=== PATIENT | male | born 1955 | race Caucasian/White ===

== ENCOUNTER 2021-03-12 04:26 | Inpatient (IN) | payer OTHER ==
[2021-03-12] VITALS (24 sets, daily range): BP systolic 98–150; BP diastolic 33–87
[~2021-03-12] VITALS: Ht 185.4 cm; Wt 113.4 kg
--- NOTE | 2021-03-12 04:40 | NUR ---
PT BIBRA 89 [facility] C/O SOB SINCE COUPLE OF DAYS. 82% ON RA. ARRIVED WITH NRB 10LPM; O2 AT 94%. OPEN WOUNDS NOTED TO LLE
[2021-03-12] MEDS ORDERED: methylPREDNISolone SOD SUCC 125 MG/2ML VIAL ONE (04:49)
[2021-03-12] MEDS ORDERED: methylPREDNISolone SOD SUCC 125 MG/2ML VIAL IV ONE (05:00)
[2021-03-12] MEDS ORDERED: IV NS 0.9% 1,000 ML BAG IV ONE (05:00)
[2021-03-12] MEDS ORDERED: ALBUTEROL FS 2.5 MG/0.5 ML VIAL.NEB NEB ONE (05:00)
--- NOTE | 2021-03-12 05:10 | NUR ---
Carla HAND #[id number] S/L; PATENT AND INTACT
--- NOTE | 2021-03-12 05:13 | NUR ---
RADIOLOGY AT BEDSIDE FOR CXR
[2021-03-12 05:14] LABS: BASOPHILS % (AUTO) 0.2 % (0.0-2.0); HEMATOCRIT 28 % (39-51); HEMOGLOBIN 8.6 g/dL (13.5-17.5); LYMPHOCYTES # (AUTO) 0.5 K/uL (0.8-4.8); LYMPHOCYTES % (AUTO) 3.1 % (20.0-44.0); MEAN CORPUSCULAR HGB CONC 31 g/dl (31.0-36.0); MEAN CORPUSCULAR VOLUME 86 fL (80-96); MONOCYTES # (AUTO) 0.4 K/uL (0.1-1.30); MONOCYTES % (AUTO) 2.6 % (2.0-12.0); NEUTROPHILS # (AUTO) 15.8 K/uL (1.8-8.9); NEUTROPHILS % (AUTO) 94.1 % (43.0-81.0); PLATELET COUNT (AUTO) 157 K/uL (150-450); RED BLOOD CELL COUNT(AUTO) 3.25 MIL/uL (4.5-6.0); WHITE BLOOD COUNT (AUTO) 16.8 K/uL (4.3-11.0)
--- NOTE | 2021-03-12 05:14 | NUR ---
INSERTED STRAIGHT CATH TO COLLECTED URINE SAMPLE; PT ANURIC AT THIS TIME. WILL CONT TO MONITOR
--- NOTE | 2021-03-12 05:15 | NUR ---
covid swab collected and sent to the lab
--- NOTE | 2021-03-12 05:15 | NUR ---
called lab for covid swabs
[2021-03-12] MEDS ORDERED: LIDOCAINE 2% JEL UROJET 10 ML MM ONE ×2 (05:22→05:30)
[2021-03-12 05:26] LABS: CALCIUM, SERUM 8.7 mg/dL (8.5-10.1); CARBON DIOXIDE 17 mmol/L (21-32); CHLORIDE 101 mmol/L (98-107); CREATININE 3.5 mg/dL (0.6-1.3); GLUCOSE 70 mg/dL (74-106); POTASSIUM 6.1 mmol/L (3.5-5.1); SODIUM SERUM 136 mmol/L (136-145); UREA NITROGEN, BLOOD 48 mg/dL (7-18)
[2021-03-12] MEDS ORDERED: CALCIUM CHLORIDE 1,000 MG/10 ML DISP.SYRIN IV ONE (05:30)
[2021-03-12] MEDS ORDERED: SODIUM BICARBONATE SYR 50 MEQ/50 ML DISP.SYRIN IV ONE (05:30)
--- NOTE | 2021-03-12 05:30 | NUR ---
PT ON O2 5LPM VIA N/C. O2SAT AT 93%. PT REFUSED SIMPLE MASK.
[2021-03-12 05:39] LABS: ALANINE AMINOTRANSFERASE 14 U/L (12-78); ALBUMIN 2.7 g/dL (3.4-5.0); ALKALINE PHOSPHATASE 143 U/L (46-116); ASPARTATE AMINOTRANSFERASE 63 U/L (15-37); BILIRUBIN,DIRECT 1.3 mg/dL (0.0-0.2); TOTAL PROTEIN, SERUM 8.2 g/dL (6.4-8.2)
[2021-03-12] MEDS ORDERED: CALCIUM CHLORIDE 1,000 MG/10 ML DISP.SYRIN ONE ×2 (05:40→05:56)
[2021-03-12] MEDS ORDERED: DEXTROSE 50%-WATER 50 ML DISP.SYRIN ONE (05:41)
[2021-03-12] MEDS ORDERED: SODIUM BICARBONATE SYR 50 MEQ/50 ML DISP.SYRIN ONE ×2 (05:41→05:50)
[2021-03-12 05:54] LABS: LYMPHOCYTES % (MANUAL) 4 % (16-48); MONOCYTES % (MANUAL) 3 % (0-11.0); NEUTROPHILS % (MANUAL) 93 (42-76)
--- NOTE | 2021-03-12 05:56 | NUR ---
Pushcart Peddler provided with authorization to admit patient.
--- NOTE | 2021-03-12 05:59 | NUR ---
Picc Line nurse has been called.
[2021-03-12] MEDS ORDERED: DEXTROSE 50%-WATER 50 ML DISP.SYRIN IVP ONE ×2 (06:00→21:00)
[2021-03-12] MEDS ORDERED: PIPERACILLIN /TAZOBACTAM 3.375 G in IV D5W 50 ML IV ONE (06:00)
[2021-03-12] MEDS ORDERED: VANCOMYCIN 1 GM in IV D5W 250 ML IV ONE (06:00)
[2021-03-12] MEDS ORDERED: ASPIRIN 325 MG TABLET PO ONE (06:00)
[2021-03-12] MEDS ORDERED: NOREPINEPHRINE 8 MG in IV NS 0.9% 242 ML IV PRN (06:00)
[2021-03-12] MEDS ORDERED: NOREPINEPHRINE 4 MG/4 ML AMPUL IV ONE (06:03)
[2021-03-12] MEDS ORDERED: ASPIRIN 325 MG TABLET ONE (06:50)
[2021-03-12] MEDS ORDERED: PIPERACILLIN /TAZOBACTAM 3.375 G VIAL IV ONE (06:50)
[2021-03-12] MEDS ORDERED: ACETAMINOPHEN 325 MG TABLET PO PRN (07:00)
[2021-03-12] MEDS ORDERED: NOREPINEPHRINE 32 MG in IV NS 0.9% 218 ML IV PRN (07:00)
[2021-03-12] MEDS ORDERED: MAGNESIUM HYDROXIDE 30 ML UDC PO PRN (07:00)
[2021-03-12] MEDS ORDERED: MAG HYDROX/AL HYDROX/SIMETH 30 ML UDC PO PRN (07:00)
[2021-03-12] MEDS ORDERED: ONDANSETRON HCL/PF 4 MG/2 ML VIAL IVP PRN (07:00)
[2021-03-12] MEDS ORDERED: Z GUARD REMEDY 2 OZ OINT TP PRN (07:00)
--- NOTE | 2021-03-12 07:10 | NUR ---
PT ON LEVOPHED DRIP @ 0.3MCG/KG/MIN. BP 118/68. HR 71. PT A/OX3
--- NOTE | 2021-03-12 07:10 | NUR ---
PT SIGNED CONSENT FOR PICCLINE; VERBALIZED UNDERSTANDING
[2021-03-12] MEDS ORDERED: VANCOMYCIN 1 GM VIAL ONE (07:14)
--- NOTE | 2021-03-12 08:00 | NUR ---
LEVOPHED TITRATE TO EFFECT. PATIENT A/OX4, BREATHING EVEN AND UNLABORED, NO SOB NOTED.
[2021-03-12] MEDS ORDERED: PANTOPRAZOLE 40 MG TABLET.DR PO ONE (08:05)
[2021-03-12] MEDS: PANTOPRAZOLE 40 MG TABLET.DR PO SCH (08:05)
[2021-03-12] MEDS ORDERED: APIX5TAB PO (09:05)
[2021-03-12] MEDS ORDERED: PANT40TA49 PO (09:05)
[2021-03-12] MEDS ORDERED: BUME0.5T5 PO (09:05)
[2021-03-12] MEDS ORDERED: MORP15TA PO (09:05)
[2021-03-12] MEDS ORDERED: ERGO500093 MT (09:05)
[2021-03-12] MEDS ORDERED: GABA-532 PO (09:05)
[2021-03-12] MEDS ORDERED: LIDOCAINE PATCH TD (09:06)
--- NOTE | 2021-03-12 09:28 | NUR ---
URINE SENT TO LAB. PATIENT KEPT COMFORTABLE, NEEDS ATTENDED.
[2021-03-12 09:43] LABS: BILIRUBIN,URINE MODERATE (NEGATIVE); COLOR,URINE DARK YELLOW (YELLOW); LEUKOCYTE ESTERASE ,URINE NEGATIVE (NEGATIVE); NITRITE, URINE POSITIVE (NEGATIVE); PROTEIN,URINE >=300 mg/dl (NEGATIVE); UGLUCOSE 100 MG/DL mg/dL (NEGATIVE)
--- NOTE | 2021-03-12 09:46 | NUR ---
FOLLOWED UP WITH NURSING SUP ABOUT PICC LINE. NURSE WILL BE HERE AROUND 1000. STILL WAITING FOR ICU BED
--- NOTE | 2021-03-12 09:53 | NUR ---
PICC LINE RN AT BEDSIDE.
--- NOTE | 2021-03-12 10:00 | NUR ---
LEVOPHED 8MG INFUSION ENDED.
[2021-03-12] MEDS: NOREPINEPHRINE 32 MG in IV NS 0.9% 218 ML IV PRN (10:03)
[2021-03-12 10:11] LABS: RBC,URINE 21-50 /HPF (0-2)
[2021-03-12 10:12] LABS: BACTERIA,URINE Moderate /HPF (None Seen); SQUAMOUS EPITHELIAL CELL,UR Few /HPF (None Seen)
[2021-03-12 10:14] LABS: URINE AMORPHOUS URATE Moderate /HPF (None Seen)
--- NOTE | 2021-03-12 11:18 | NUR ---
PT IN AAOX4. NOT IN DISTRESS, ON O2 VIA FACEMASK @ 8LPM NOTED SATTING @ 96%. AWAITING FOR ROOM
[2021-03-12] MEDS ORDERED: ZOSYN IVPB 2.25 G in IV D5W 50ml IV SCH (13:00)
[2021-03-12] MEDS ORDERED: HYDROCODONE/APAP 5/325MG TABLET ONE (13:20)
[2021-03-12] MEDS ORDERED: MORPHINE SULFATE IR 15 MG TABLET PO PRN (13:30)
[2021-03-12] MEDS: HYDROCODONE/APAP 5/325MG TABLET PO PRN (13:32)
--- NOTE | 2021-03-12 15:39 | NUR ---
BED 254
--- NOTE | 2021-03-12 16:06 | NUR ---
CALLED ICU FOR REPORT RN NOT AVAILABLE
[2021-03-12] MEDS: AZITHROMYCIN 500 MG in IV D5W 250 ML IV SCH (16:30)
--- NOTE | 2021-03-12 16:30 | NUR ---
REPORT GIVEN TO BECK FERRERA FOR JAMIL. WITH ONGOING LEVOPHED DRIP TITRATE TO EFFECT.
[2021-03-12 17:01] LABS: CREATININE, URINE 160.7 MG/DL (30.0-125.0); URINE TOTAL PROTEIN 309.2 mg/dL (0-11.9)
--- NOTE | 2021-03-12 17:01 | NUR ---
PT TRANSPORTED TO UNIT ON [facility] WITH EMT AND RN AT BEDSIDE WITH ACLS PROTOCOL. NAD NOTED DURING TRANSPORT.
--- NOTE | 2021-03-12 17:15 | NUR ---
RN OPENING NOTE Received patient from ER via [facility]. AOx4 on simple mask 7L. No complains of pain or discomfort. Patient on Levo 0.3 on LAURA PICC line. Noted with bleeding in the PICC line dressing but no active bleeding. Patient has swelling on both lower extremities. Patient is wheelchair and bed bound. Safety measures implemented. Call light within reach. Will cont to monitor.
[2021-03-12] MEDS: APIXABAN 5 MG TABLET PO SCH (17:37)
[2021-03-12] MEDS: CEFEPIME 1 GM in IV D5W 50 ML IV SCH (17:40)
--- NOTE | 2021-03-12 19:30 | NUR ---
report given to animal care service worker nurse for bernice
--- NOTE | 2021-03-12 19:45 | NUR ---
CHARGE COORDINATOR OPENING NOTE Received patient in bed A/Ox4 on simple mask 7L. No complains of pain or discomfort. Patient on Levophed drip 0.2 mcg/kg/min infusing through (R) UA PICC line. Morning shift RN PICC line inserted today with noted bleeding at site and dressing, however it is not to be removed at this time; per nurse dressing change may be competed tomorrow and there is no active bleeding at this time. Patient noted with pitting edema on bilateral lower extremities. Patient is wheelchair and bed bound. Safety measures implemented: bed locked in lowest position, side rails up x2, bed alarm on, Call light within reach. No acute distress noted at this time
--- NOTE | 2021-03-12 20:30 | NUR ---
BUSINESS UNIT DIRECTOR NOTE DR. KO CONTACTED REGARDING THE PT'S POTASSIUM LEVEL OF 6.1. D50, 10 UNITS OF INSULIN AND KAYEXALATE 30MG ORDERED. Addendum: 03/12/21 at 2300 by ADOLFO SANDERS RN ADDITIONALLY, BMP WILL BE DRAWN AT 0100
[2021-03-12] MEDS ORDERED: INSULIN REGULAR, HUMAN 100 UNIT/ML 10 ML VIAL IV ONE (21:00)
[2021-03-12] MEDS ORDERED: SODIUM POLYSTYRENE SULFONATE 15 G/60 ML BOTTLE PO ONE (21:00)
--- NOTE | 2021-03-12 21:00 | NUR ---
FIBER TECHNICIAN NOTE POC GLUCOSE LEVEL DRAWN, 91 MG/DL. WILL BEGIN D50W AND 10 UNITS OF REGULAR INSULIN PER DR. KO R/T HYPERKALEMIA.
[2021-03-12] MEDS ORDERED: SODIUM POLYSTYRENE SULFONATE 15 G/60 ML BOTTLE ONE (21:49)
[2021-03-12] MEDS ORDERED: CLINDAMYCIN 900 MG/6 ML VIAL ONE (21:50)
[2021-03-12] MEDS ORDERED: INSULIN REGULAR, HUMAN 100 UNIT/ML 3 ML VIAL ONE (21:51)
--- NOTE | 2021-03-12 22:00 | NUR ---
PREPRESS SPECIALIST NOTE POC GLUCOSE LEVEL DRAWN, 176 MG/DL.
--- NOTE | 2021-03-12 23:00 | NUR ---
CHIEF TECHNOLOGY OFFICER NOTE POC GLUCOSE LEVEL DRAWN, 161 MG/DL.
[2021-03-13] VITALS (95 sets, daily range): BP systolic 81–150; BP diastolic 32–102
--- NOTE | 2021-03-13 | NUR ---
PACKAGE SORTER NOTE POC GLUCOSE LEVEL DRAWN, 156 MG/DL.
[2021-03-13] MEDS ORDERED: NOREPINEPHRINE 8MG/250ML RTU 250 ML IV ONE (03:37)
[2021-03-13] MEDS: NOREPINEPHRINE 32 MG in IV NS 0.9% 218 ML IV PRN ×2 (04:06→18:13)
--- NOTE | 2021-03-13 06:08 | NUR ---
RN NOTE PT COMPLAINS OF INCREASING SOB ON 15L NON REBREATHER WITH SATURATIONS 91-95%. DR KO AWARE AND HI FLOW O2 ORDERED ALONG WITH STAT CHEST X-RAY.
[2021-03-13] MEDS: CEFEPIME 1 GM in IV D5W 50 ML IV SCH ×2 (06:37→17:07)
--- NOTE | 2021-03-13 07:00 | NUR ---
ACUTE SPECIALIST CLOSING NOTE Patient in bed A/Ox4 on High Flow 30L FiO2 100% with saturations above 98%, pt. denies SOB or s/s of resp. distress at this time. No complains of pain or discomfort. Patient on Levophed drip 0.1 mcg/kg/min infusing through (R) UA PICC line with stable BP. PICC line site and dressing with noted bleeding, however it is not to be removed at this time; per charge nurse dressing change may be competed after 24H of insertion and there is no active bleeding at this time. Patient noted with pitting edema on bilateral lower extremities. Patient is wheelchair and bed bound. Pt. kept clean and dry. All orders met and carried out throughout shift. Safety measures implemented: bed locked in lowest position, side rails up x2, bed alarm on, Call light within reach. No acute distress noted at this time. Endorsed to morning shift RN.
--- NOTE | 2021-03-13 07:05 | NUR ---
RN NOTES RECEIVED PT ON BED, A/Ox4, ON 30L , 100% FIO2, O2 SAT WNL, ON TELE HR IN 90'S, ABLE TO USE URINAL ,ON RIGHT UPPER ARM PICC LINE SITE , SMALL AMOUNT OLD BLOODY DRAINAGE NOTED , CONTINUE TO MONITOR LEVO AT .1 MCG/KG/MIN RUNNING, FOR BP SUPPORT, SR UP x3, CALL LIGHT WITHIN EASY REACH, BED LOCKED AND IN LOWEST POSITION, CONTINUE TO MONITOR .
[2021-03-13] MEDS: GABAPENTIN 100 MG CAPSULE PO SCH (08:18)
[2021-03-13] MEDS: APIXABAN 5 MG TABLET PO SCH ×2 (08:18→17:09)
[2021-03-13] MEDS: PANTOPRAZOLE 40 MG TABLET.DR PO SCH (08:19)
[2021-03-13] MEDS: HYDROCODONE/APAP 5/325MG TABLET PO PRN (08:22)
[2021-03-13] MEDS ORDERED: PANTOPRAZOLE 40 MG TABLET.DR PO SCH (09:00)
[2021-03-13 09:32] LABS: BASOPHILS % (AUTO) 0.3 % (0.0-2.0); EOSINOPHILS % (AUTO) 0.8 % (0.0-6.0); HEMATOCRIT 27 % (39-51); HEMOGLOBIN 8.6 g/dL (13.5-17.5); LYMPHOCYTES # (AUTO) 0.4 K/uL (0.8-4.8); LYMPHOCYTES % (AUTO) 3.1 % (20.0-44.0); MEAN CORPUSCULAR HGB CONC 32 g/dl (31.0-36.0); MEAN CORPUSCULAR VOLUME 85 fL (80-96); MONOCYTES # (AUTO) 0.6 K/uL (0.1-1.30); MONOCYTES % (AUTO) 5.6 % (2.0-12.0); NEUTROPHILS # (AUTO) 10.4 K/uL (1.8-8.9); NEUTROPHILS % (AUTO) 90.2 % (43.0-81.0); PLATELET COUNT (AUTO) 142 K/uL (150-450); RED BLOOD CELL COUNT(AUTO) 3.22 MIL/uL (4.5-6.0); WHITE BLOOD COUNT (AUTO) 11.5 K/uL (4.3-11.0)
[2021-03-13] MEDS: ACETYLCYSTEINE 10% SOLN 400 MG/4 ML VIAL NEB SCH ×3 (10:00→23:22)
[2021-03-13] MEDS: IPRATROPIUM NEB FS 0.5 MG/2.5 ML AMPUL.NEB NEB SCH ×3 (10:00→19:30)
--- NOTE | 2021-03-13 10:00 | NUR ---
RN NOTES DR READ NOTIFIED REGARDING ABG RESULTS , FIO2 INCREASED TO 75% PER MD ORDER .
[2021-03-13 10:25] LABS: ABG BASE EXCESS -5.4 mmol/L; ABG OXYGEN SATURATION 90.5 % (92.0-98.5); ABG PH 7.315 (7.350-7.450); ABG PO2 61.9 mmHg (75.0-100.0); AaDO2 320.8 mmHg; COHb 0.1 % (0.5-1.5); MetHb 0.3 % (0.0-1.5); O2Hb 90.1 % (94.0-97.0); SITE, ABG Right Radial; VENT MODE, BG 40L 60% hfnc vapo
[2021-03-13] MEDS ORDERED: IV D5/ 0.9% NACL 1,000 ML IV PRN (10:30)
[2021-03-13 10:41] LABS: THYROID STIMULATING HORMONE 4.74 uIU/mL (0.358-3.74)
--- NOTE | 2021-03-13 10:45 | NUR ---
RN NOTES PT NEED BLOOD TRANSFUSION AND PRESSORS, AND ABX, ORDER RECEIVED FOR SECOND MIDLINE PLACEMENT. Addendum: 03/13/21 at 1902 by DEUCE HARDY RN PLEASE DISREGARD ABOVE CHARTING , CHARTED ON A WRONG PT
[2021-03-13 10:47] LABS: ALBUMIN 2.6 g/dL (3.4-5.0); BILIRUBIN,TOTAL 1.9 mg/dL (0.2-1.0); CALCIUM, SERUM 8.2 mg/dL (8.5-10.1); CREATININE 4.1 mg/dL (0.6-1.3); MAGNESIUM 2.5 mg/dL (1.8-2.4); PHOSPHORUS 6.2 mg/dL (2.5-4.9); TOTAL PROTEIN, SERUM 7.9 g/dL (6.4-8.2)
[2021-03-13 10:53] LABS: POTASSIUM 6.5 mmol/L (3.5-5.1)
[2021-03-13 11:23] LABS: VANCOMYCIN,RANDOM 13 ug/ml (18-26)
[2021-03-13 11:35] LABS: CREATINE KINASE, TOTAL 481 U/L (39-308)
[2021-03-13] MEDS ORDERED: VANCOMYCIN 1 GM in IV D5W 250ml IV ONE (13:00)
[2021-03-13 15:34] LABS: CREATININE, URINE 272.8 MG/DL (30.0-125.0); URINE TOTAL PROTEIN 150.2 mg/dL (0-11.9)
--- NOTE | 2021-03-13 16:00 | NUR ---
RN NOTES PT REFUSED TO HAVE HD CATH PLACEMENT AT THIS TIME .
[2021-03-13] MEDS: AZITHROMYCIN 500 MG in IV D5W 250 ML IV SCH (16:05)
[2021-03-13 16:44] LABS: BILIRUBIN,URINE SMALL (NEGATIVE); COLOR,URINE YELLOW (YELLOW); LEUKOCYTE ESTERASE ,URINE NEGATIVE (NEGATIVE); NITRITE, URINE NEGATIVE (NEGATIVE); PROTEIN,URINE 30 mg/dl (NEGATIVE); UGLUCOSE NEGATIVE (NEGATIVE)
[2021-03-13 16:56] LABS: RBC,URINE 81-100 /HPF (0-2); WBC,URINE 0-2 /HPF (0-3)
[2021-03-13 16:57] LABS: BACTERIA,URINE 1+ /HPF (None Seen); SQUAMOUS EPITHELIAL CELL,UR 0-2 /HPF (None Seen)
[2021-03-13] MEDS: Sodium Bicarbonate 100 MEQ in IV D5/0.45 NACL 1,000 ML IV PRN (17:36)
[2021-03-13] MEDS: SODIUM POLYSTYRENE SULFONATE 15 G/60 ML BOTTLE PO ONE ×2 (17:36→17:43)
--- NOTE | 2021-03-13 18:00 | NUR ---
RN NOTES PT REFUSED KAYEXALATE, EDUCATION GIVEN REGARDING HOW IMPORTANT IS TO TAKE THE KAYEXALATE , PT STILL REFUSED.
[2021-03-13 18:03] LABS: EOSINOPHIL,URINE None Seen
--- NOTE | 2021-03-13 19:00 | NUR ---
RN NOTES PT REMAINS ON HIGH FLOW O2, ANXIOUS AND REFUSED MEDS AT TIMES, MD NOTIFIED . WILL ENDORSE TO WELL LOGGER NURSE FOR CONTINUITY OF CARE.
--- NOTE | 2021-03-13 20:05 | NUR ---
RT neb tx not given pending pcr result
--- NOTE | 2021-03-13 20:16 | NUR ---
Patient complains of CP 10/10 radiating to his bilateral arms and hands. Pressure felt at mid chest. EKG ordered awaiting results. Vitals stable BP 134/92, HR 74, SPO2 94% on HFNC. Patient skin warm and dry with breathing even and unlabored. Radial pulse palpated.
--- NOTE | 2021-03-13 20:54 | NUR ---
Paged production director Dr. Coleman regarding patient CP and results of EKG. Dr wants a new Troponin draw and see if there any changes from prior.
[2021-03-13] MEDS: MUPIROCIN OINT 2% 22 GM TUBE NS SCH (21:36)
[2021-03-13] MEDS: MORPHINE SULFATE INJ 2 MG/ML DISP.SYRIN IM PRN (22:36)
[2021-03-14] VITALS (95 sets, daily range): BP systolic 85–184; BP diastolic 19–136
[2021-03-14] MEDS: IPRATROPIUM NEB FS 0.5 MG/2.5 ML AMPUL.NEB NEB SCH ×4 (01:30→20:04)
[2021-03-14] MEDS: ACETYLCYSTEINE 10% SOLN 400 MG/4 ML VIAL NEB SCH ×3 (02:10→13:30)
[2021-03-14 03:35] LABS: BASOPHILS % (AUTO) 0.1 % (0.0-2.0); HEMATOCRIT 27 % (39-51); HEMOGLOBIN 8.6 g/dL (13.5-17.5); LYMPHOCYTES # (AUTO) 0.3 K/uL (0.8-4.8); MEAN CORPUSCULAR HGB CONC 32 g/dl (31.0-36.0); MEAN CORPUSCULAR VOLUME 84 fL (80-96); MONOCYTES # (AUTO) 0.6 K/uL (0.1-1.30); MONOCYTES % (AUTO) 5.2 % (2.0-12.0); NEUTROPHILS # (AUTO) 11.5 K/uL (1.8-8.9); NEUTROPHILS % (AUTO) 92.7 % (43.0-81.0); PLATELET COUNT (AUTO) 139 K/uL (150-450); RED BLOOD CELL COUNT(AUTO) 3.21 MIL/uL (4.5-6.0); WHITE BLOOD COUNT (AUTO) 12.4 K/uL (4.3-11.0)
[2021-03-14 03:59] LABS: ALBUMIN 2.5 g/dL (3.4-5.0); BILIRUBIN,TOTAL 1.6 mg/dL (0.2-1.0); CREATININE 4.1 mg/dL (0.6-1.3); MAGNESIUM 2.4 mg/dL (1.8-2.4); PHOSPHORUS 5.9 mg/dL (2.5-4.9); TOTAL PROTEIN, SERUM 7.9 g/dL (6.4-8.2)
[2021-03-14] MEDS: CEFEPIME 1 GM in IV D5W 50 ML IV SCH ×2 (06:04→17:14)
--- NOTE | 2021-03-14 07:05 | NUR ---
RN NOTES RECEIVED PT ON BED, A/Ox3, ON 40L , 75% FIO2, O2 SAT WNL, ON TELE HR IN 80'S, ,ON RIGHT UPPER ARM PICC LINE SITE , SMALL AMOUNT OLD BLOODY DRAINAGE NOTED , CONTINUE TO MONITOR LEVO AT .06 MCG/KG/MIN RUNNING, FOR BP SUPPORT, SR UP x3, CALL LIGHT WITHIN EASY REACH, BED LOCKED AND IN LOWEST POSITION, CONTINUE TO MONITOR .
[2021-03-14] MEDS: GABAPENTIN 100 MG CAPSULE PO SCH (08:06)
[2021-03-14] MEDS: MUPIROCIN OINT 2% 22 GM TUBE NS SCH ×2 (08:06→22:03)
[2021-03-14] MEDS: PANTOPRAZOLE 40 MG TABLET.DR PO SCH (08:06)
[2021-03-14] MEDS: Sodium Bicarbonate 100 MEQ in IV D5/0.45 NACL 1,000 ML IV PRN ×2 (08:30→23:40)
--- NOTE | 2021-03-14 09:20 | NUR ---
WOUND CARE CONSULT: REVIEWED CHART, NURSING DOCUMENTATION AND PHOTOS WHICH INDICATE LOWER LEG WOUNDS AND RASHH TO GROIN FOLDS AND PERINEUM, PRESENT ON ADMISSION. DPM CONSULT CALLED TO DR ALLEN. RECOMMENDATIONS MADE FOR SKIN PROTECTION. DISCUSSED WITH NURSING STAFF. MD IN AGREEMENT WITH PLAN OF CARE. PT IS ON [place] [employer] LOW AIRLOSS BED.
[2021-03-14] MEDS: APIXABAN 5 MG TABLET PO SCH ×2 (09:40→17:25)
--- NOTE | 2021-03-14 11:00 | NUR ---
RN NOTES DR AMARO NOTIFIED REGARDING CK-MB 14.0 AND TROPONIN .276, CONTINUE TO MONITOR.
[2021-03-14] MEDS ORDERED: VANCOMYCIN POST DIALYSIS 500MG IV PRN (12:30)
--- NOTE | 2021-03-14 15:08 | NUR ---
RN NOTES DR SALGADO NOTIFIED REGARDING HEMATURIA , CONTINUE TO MONITOR.
[2021-03-14] MEDS ORDERED: MORPHINE SULFATE INJ 2 MG/ML DISP.SYRIN IV ONE (16:00)
--- NOTE | 2021-03-14 16:30 | NUR ---
RN NOTES DR BOND WAS UNABLE TO GET HD ACCESS . DR. SALGADO NOTIFIED. ORDER RECEIVED TO NOTIFIED VASCULAR SURGEON ( DR HARRIS). DR HARRIS PAGED AND SPOKEN TO DR MERCEDES [employer] HEL[employer] AIRCREWMAN . PER DR MERCEDES, DR HARRIS MAY PLACE THE HD CATH IN AM . DR SALGADO NOTIFIED .
[2021-03-14] MEDS: CLOTRIMAZOLE 1% 15 GM TUBE TP SCH (17:14)
[2021-03-14] MEDS: NOREPINEPHRINE 8 MG in IV NS 0.9% 242 ML IV PRN (17:58)
[2021-03-14] MEDS ORDERED: DEXTROSE 50%-WATER 50 ML DISP.SYRIN IVP ONE (18:00)
[2021-03-14] MEDS ORDERED: INSULIN REGULAR, HUMAN 100 UNIT/ML 10 ML VIAL IV ONE (18:00)
[2021-03-14] MEDS ORDERED: Calcium Gluconate 1GM/10ML 4.65 MEQ in IV D5W 50 ML IV ONE (18:00)
[2021-03-14] MEDS: SODIUM POLYSTYRENE SULFONATE 15 G/60 ML BOTTLE PO ONE ×2 (18:00→19:03)
[2021-03-14] MEDS ORDERED: LIDOCAINE 1% INJ 50 ML MDV IJ ONE (18:30)
[2021-03-14] MEDS ORDERED: MORPHINE SULFATE INJ 4 MG/ML DISP.SYRIN IV ONE (18:30)
[2021-03-14] MEDS ORDERED: LIDOCAINE HCL/MPF 1% 30 ML VIAL IJ ONE (18:33)
--- NOTE | 2021-03-14 19:00 | NUR ---
RN NOTES DR HARRIS AT THE BEDSIDE FOR HD CATHETER INSERTION , UNSUCCESSFUL RESULTS. PT WILL HAVE HD CATH IN AM PER DR HARRIS. PRESSURE DRESSING APPLIED TO R GROIN, HEMOSTASIS ACHIEVED, REPORT GIVEN TO PM NURSE FOR CONTINUITY FOR CARE .
--- NOTE | 2021-03-14 19:24 | NUR ---
RN NOTE PATIENT IN BED RESTING, ALERT AND ORIENTED X2-3. SPOKE WITH DR. HARRIS WITH ORDERS TO HAVE PATIENT NPO AFTER MIDNIGHT EXCEPT MEDS (TAKEN WITH SIPS OF WATER), FOR HD CATHETER INSERTION IN AM. ON O2 5L VIA NASAL CANNULA. O2 SAT 94%. NO SIGNS OF DISTRESS. ADORNO CATH DRAINING HEMATURIA VIA GRAVITY. IV ACCESS ON LAURA PICC AND RIGHT AC#18 PATENT AND INTACT. INFUSING LEVO 0.02MCG AND NA BICARB @ 75ML/HR. NO SIGNS OF ANY INFILTRATION. BED LOCKED AND IN LOWEST POSITION. CALL LIGHT WITHIN REACH. ALL NEEDS ANTICIPATED.
[2021-03-15] VITALS (84 sets, daily range): BP systolic 79–131; BP diastolic 35–91
[2021-03-15] MEDS: IPRATROPIUM NEB FS 0.5 MG/2.5 ML AMPUL.NEB NEB SCH ×4 (01:30→19:53)
--- NOTE | 2021-03-15 04:10 | NUR ---
PATIENT TEMP 94.7 VIA ORALLY. PATIENT REMAINS ALERT AND RESPONSIVE. HR AND BP STABLE. GAVE WARM BLANKETS AND HUGO HUGGER. WILL RECHECK TEMP.
[2021-03-15 04:27] LABS: BASOPHILS % (AUTO) 0.1 % (0.0-2.0); HEMATOCRIT 23 % (39-51); HEMOGLOBIN 7.3 g/dL (13.5-17.5); LYMPHOCYTES # (AUTO) 0.3 K/uL (0.8-4.8); MEAN CORPUSCULAR HGB CONC 32 g/dl (31.0-36.0); MEAN CORPUSCULAR VOLUME 84 fL (80-96); MONOCYTES # (AUTO) 0.7 K/uL (0.1-1.30); MONOCYTES % (AUTO) 7.1 % (2.0-12.0); NEUTROPHILS # (AUTO) 8.8 K/uL (1.8-8.9); NEUTROPHILS % (AUTO) 89.8 % (43.0-81.0); PLATELET COUNT (AUTO) 102 K/uL (150-450); RED BLOOD CELL COUNT(AUTO) 2.73 MIL/uL (4.5-6.0); WHITE BLOOD COUNT (AUTO) 9.7 K/uL (4.3-11.0)
[2021-03-15 04:47] LABS: ALBUMIN 2.1 g/dL (3.4-5.0); CREATININE 3.7 mg/dL (0.6-1.3); MAGNESIUM 2.5 mg/dL (1.8-2.4); PHOSPHORUS 5.9 mg/dL (2.5-4.9); POTASSIUM 5.6 mmol/L (3.5-5.1); TOTAL PROTEIN, SERUM 7.1 g/dL (6.4-8.2)
[2021-03-15] MEDS: CEFEPIME 1 GM in IV D5W 50 ML IV SCH ×2 (05:24→17:55)
--- NOTE | 2021-03-15 05:36 | NUR ---
PATIENT REMOVED HUGO HUGGER AND BLANKETS. EDUCATED PATIENT RISKS AND BENEFITS, STILL STRONGLY REFUSED. STATED "LEAVE ME ALONE, GO AWAY." WILL CONTINUE TO MONITOR.
--- NOTE | 2021-03-15 06:44 | NUR ---
RN NOTE PATIENT ALERT AND ORIENTED X3. CONTINUES ON O2 5L VIA NASAL CANNULA O2 SAT 94%. DENIES ANY PAIN AT THIS TIME. RETRIEVED CONSENT FOR HD CATHETER PLACEMENT FOR TODAY. RECHECKED TEMP 94.3 NOTED. PATIENT REQUESTED FOR BLANKETS AND HUGO HUGGER ON, ASSISTED PATIENT. REFUSED CHANGED OF LINENS AND OR ANY CLEANING. ADORNO CATH DRAINED 250CC OF GROSS HEMATURIA. REMAINED NPO AFTER MIDNIGHT. IV ACCESS LAURA PICC AND RIGHT AC #18 PATENT AND INTACT. LEVO 0.02 MCG AND NA BICARB @ 75ML/HR INFUSING. NO SIGNS OF INFILTRATION. BED LOCKED AND IN LOWEST POSITION. CALL LIGHT WITHIN REACH. ENDORSED TO [place].
[2021-03-15] MEDS: PANTOPRAZOLE 40 MG TABLET.DR PO SCH (07:11)
[2021-03-15] MEDS: ACETYLCYSTEINE 10% SOLN 400 MG/4 ML VIAL NEB SCH ×3 (07:38→23:37)
--- NOTE | 2021-03-15 08:00 | NUR ---
RN/ICU-RECEIVED PT. FROM NIGHTSHIFT RN, AWAKE, ALERT, FORGETFUL AT TIMES AND GETS AGITATED AT TIMES. BREATHING COMES EASY W/ O2 SUPPORT OF 5L/NC, SATS.-95%, EKG SR W/ 1ABB AND INTERMITTENT VPACING W/ GOOD CAPTURE. BP-93/58. ON LEVOPHED DRIP AT 0.02 MCG/KG/MIN. WILL ATTEMPT TO WEAN TOLERATED TO KEEP SBP>90. PT. SCHEDULED TO GO FOR QUINTIN CATH PLACEMENT TODAY, W/ CONSENT SIGNED BY PT. PT. W/ ANASARCA. ANAT. SWELLING OF LOWER EXTREMITIES, PITTING 2+ W/ DRESSING NOTED ON BOTH LE, W/ SEROUS DRAINAGE, R>L. WILL CHANGE DRESSING PER MD ORDER.TEMPT.-97.6/F HUGO HUGGER IN PLACE. PT. REFUSING TO BE REPOSITIONED TO SIDE. EDUCATED TO POSSIBLE COMPLICATIONS OF NOT TURNING, PT. CONTINUETO REFUSED TURNING AND EASILY GETS UPSET. WILL ATTEMPT TO REPOSITION LATER.
[2021-03-15 08:07] LABS: *SPE A/G RATIO 0.6 (0.7-1.7); *SPE ALPHA-1-GLOBULIN 0.4 g/dL (0.0-0.4); *SPE ALPHA-2-GLOBULIN 0.6 g/dL (0.4-1.0); *SPE BETA GLOBULIN 0.9 g/dL (0.7-1.3); *SPE M-SPIKE Not Observed g/dL (Not Observed)
[2021-03-15] MEDS: MUPIROCIN OINT 2% 22 GM TUBE NS SCH ×2 (08:37→20:36)
[2021-03-15] MEDS: GABAPENTIN 100 MG CAPSULE PO SCH (08:37)
[2021-03-15] MEDS: CLOTRIMAZOLE 1% 15 GM TUBE TP SCH ×2 (08:38→17:11)
[2021-03-15] MEDS: APIXABAN 5 MG TABLET PO SCH ×2 (09:00→16:45)
--- NOTE | 2021-03-15 09:00 | NUR ---
RN/ICU- PT. CODE STATUS"DNR,DNI". COMFORT MEASURES IN PROGRESS.PT. CONTINUE TO COMPLAIN OF PAIN 3-5 OFF AND ON. WILL MEDICATE APPROPRIATE W/ TYLENOL AND REFER NEEDED
--- NOTE | 2021-03-15 09:42 | NUR ---
RN/ICU-PT. ON ELIQUIS BID, PT. WILL UNDERGO HD CATH PLACEMENT BY DR. HARRIS TODAY. HEMATURIC. Khadra BOND DNP MADE AWARE OF PT. STATUS. W/ RBTO TO HOLD AM DOSE .
--- NOTE | 2021-03-15 09:45 | NUR ---
RN/ICU- DR. KYLE HERE, SPOKE TO PT. AND ASSESSED PT.
[2021-03-15] MEDS ORDERED: DEXTROSE 50%-WATER 50 ML DISP.SYRIN IVP ONE (10:00)
[2021-03-15] MEDS ORDERED: INSULIN REGULAR, HUMAN 100 UNIT/ML 10 ML VIAL IV ONE (10:00)
[2021-03-15] MEDS ORDERED: MORPHINE SULFATE INJ 4 MG/ML DISP.SYRIN IV STA (10:06)
[2021-03-15 10:07] LABS: *SPE A/G RATIO 0.6 (0.7-1.7); *SPE ALPHA-1-GLOBULIN 0.4 g/dL (0.0-0.4); *SPE ALPHA-2-GLOBULIN 0.7 g/dL (0.4-1.0); *SPE M-SPIKE Not Observed g/dL (Not Observed)
--- NOTE | 2021-03-15 10:35 | NUR ---
RN/ICU-TO PRINT ROOM WORKER FOR QUINTIN CATHETER INSERTION BY BED PER ACLS PROTOCOL.
[2021-03-15] MEDS ORDERED: LIDOCAINE HCL/MPF 1% 30 ML VIAL IJ ONE (11:00)
[2021-03-15] MEDS ORDERED: FENTANYL PF 100MCG/2ML AMPUL ONE (11:21)
[2021-03-15] MEDS ORDERED: IV NS 0.9% 50 ML IV ONE (11:37)
[2021-03-15] MEDS ORDERED: IV D5W 250 ML IV ONE (11:38)
[2021-03-15] MEDS ORDERED: IV NS 0.9% 500 ML IV ONE (11:39)
--- NOTE | 2021-03-15 12:35 | NUR ---
RN/ICU-BACK FROM STRIP FEEDER,S/P RIGHT FEMORAL QUINTIN CATH PLACEMENT.ACCOMPANIED BY STRIP FEEDER STAFF.SITE IS INTACT W/ CLEAR DRESSING W/ SOME OOZING,PRESSURE APPLIED.
--- NOTE | 2021-03-15 12:40 | NUR ---
RN/ICU-PT. HYPOTHERMIC, T-95/F PER TEMPORAL THERM.PT. COVERED W/ HUGO EAST. WILL CONTINUE TO MONITOR PT. CLOSELY.
--- NOTE | 2021-03-15 12:45 | NUR ---
RN/ICU-DR. KYLE CALLED INQUIRING REGARDING QUINTIN CATH PLACEMENT.
[2021-03-15] MEDS ORDERED: CELLULOSE,OXIDIZED 1 EACH EACH MC ONE (13:00)
--- NOTE | 2021-03-15 13:00 | NUR ---
RN/ICU-ABLE TO REPOSITION PT. TO RIGHT SIDE. PARTIAL LINEN CHANGE DONE. ORAL HYGIENE AND SKIN CARE DONE. ANAT. LOWER EXTREMITIES WD CARE DONE.ANAT. HEELS OFFLOADED. WILL CONTINUE TO MONITOR PER PROTOCOL.
--- NOTE | 2021-03-15 15:08 | NUR ---
RN/ICU-HD RN HERE TO DIALYZE PT.REMAINS ON LEVOPHED AT 0.02 MCG/KG/MIN. BP-107/62. WILL CONTINUE TO TITRATE PER PROTOCOL.
--- NOTE | 2021-03-15 15:29 | NUR ---
RN/ICU-PT. NOW ON RENAL DIET. STARTING DINNER.
[2021-03-15] MEDS ORDERED: LORAZEPAM INJ 2 MG/ML VIAL IV STA (17:01)
[2021-03-15] MEDS: NOREPINEPHRINE 8 MG in IV NS 0.9% 242 ML IV PRN (17:56)
--- NOTE | 2021-03-15 18:08 | NUR ---
RN/ICU-PT. SLEEPING,UNABLE TO TAKE DINNER, W/ ONGOING HD.ON LEVOPHED DRIP AT 0.03 MCG/KG/MIN. LATEST BP-107/63
--- NOTE | 2021-03-15 19:15 | NUR ---
PATIENT IN BED RESTING, ALERT AND ORIENTED X2-3. ON O2 5L VIA NASAL CANNULA. O2 SAT 94%. NO SIGNS OF DISTRESS.HAVE RFEMORAL QUINTIN HD CATH, DRESSING IS SOAK ON BLOOD, REINFORCEMENT OF DRESSING DONE,LEFT FEMORAL AREA DRESSING WITH MINIMAL BLOOD ALSO NOTED, ADORNO CATH DRAINING TEA COLORED VIA GRAVITY. IV ACCESS ON LAURA PICC AND RIGHT AC#18 PATENT AND INTACT. INFUSING LEVO 0.03MCG NO SIGNS OF ANY INFILTRATION. PT TEMP ON 96.9 HUGO HUGGER ON PLACED BED LOCKED AND IN LOWEST POSITION. CALL LIGHT WITHIN REACH. WILL CONT TO MONITOR
[2021-03-16] VITALS (68 sets, daily range): BP systolic 86–134; BP diastolic 38–95
[2021-03-16] MEDS: IPRATROPIUM NEB FS 0.5 MG/2.5 ML AMPUL.NEB NEB SCH ×4 (01:31→19:35)
[2021-03-16 04:35] LABS: BASOPHILS # (AUTO) 0.1 K/uL (0.0-0.2); BASOPHILS % (AUTO) 0.5 % (0.0-2.0); EOSINOPHILS % (AUTO) 0.1 % (0.0-6.0); HEMATOCRIT 22 % (39-51); LYMPHOCYTES # (AUTO) 0.4 K/uL (0.8-4.8); LYMPHOCYTES % (AUTO) 3.3 % (20.0-44.0); MEAN CORPUSCULAR HGB CONC 32 g/dl (31.0-36.0); MEAN CORPUSCULAR VOLUME 84 fL (80-96); MONOCYTES # (AUTO) 0.9 K/uL (0.1-1.30); MONOCYTES % (AUTO) 6.8 % (2.0-12.0); NEUTROPHILS # (AUTO) 12.1 K/uL (1.8-8.9); NEUTROPHILS % (AUTO) 89.3 % (43.0-81.0); PLATELET COUNT (AUTO) 120 K/uL (150-450); RED BLOOD CELL COUNT(AUTO) 2.58 MIL/uL (4.5-6.0); WHITE BLOOD COUNT (AUTO) 13.5 K/uL (4.3-11.0)
[2021-03-16 04:44] LABS: CREATININE 2.6 mg/dL (0.6-1.3); MAGNESIUM 2.2 mg/dL (1.8-2.4); PHOSPHORUS 3.9 mg/dL (2.5-4.9); POTASSIUM 4.8 mmol/L (3.5-5.1)
[2021-03-16 04:46] LABS: HEMOGLOBIN 6.8 g/dL (13.5-17.5)
[2021-03-16 05:15] LABS: MONOCYTES % (MANUAL) 5 % (0-11.0); NEUTROPHILS % (MANUAL) 92 (42-76)
[2021-03-16 05:16] LABS: BASOPHILS % (MANUAL) 0 % (0.0-2.0); EOSINOPHILS % (MANUAL) 0 % (0-4); LYMPHOCYTES % (MANUAL) 3 % (16-48)
[2021-03-16] MEDS: CEFEPIME 1 GM in IV D5W 50 ML IV SCH (05:40)
--- NOTE | 2021-03-16 06:28 | NUR ---
REPORTED TO BETH KO NP ONCALL THAT PT HGB IS 6.8 HCT 22 WITH ORDER TO TRANSFUSE 1PRBC NOTED AND CARRIED OUT
--- NOTE | 2021-03-16 06:29 | NUR ---
BLOOD TRANSFUSION CONSENT SECURE FROM [facility] [phone] VERIFIED WITH OTHER NURSE
--- NOTE | 2021-03-16 07:15 | NUR ---
INTERVENTIONAL NURSE NOTES RECEIVED PATIENT IN BED RESTING, ALERT AND ORIENTED X2. ON O2 5L VIA NASAL CANNULA. O2 SAT 94%. NO SIGNS OF DISTRESS NOTED AT THIS TIME. NOTED WITH QUINTIN HD CATH, NOTED WITH MINIMAL BLOOD ON DRESSING, ADORNO CATH DRAINING TEA COLORED VIA GRAVITY. IV ACCESS ON LAURA PICC AND RIGHT AC#18 PATENT AND INTACT. INFUSING LEVO 0.03MCG. SAFETY MEASURES MAINTAINED, BED IN LOWEST LOCKED POSITION WITH SIDE RAILS UP X2, CALL LIGHT WITHIN REACH. WILL CONT TO MONITOR.
[2021-03-16] MEDS: ACETYLCYSTEINE 10% SOLN 400 MG/4 ML VIAL NEB SCH ×2 (07:30→13:10)
--- NOTE | 2021-03-16 07:57 | NUR ---
DECREASE O2 FLOW FROM 5 LPM TO 4 LPM DUE TO 94 TO 96% SATURATION. Addendum: 03/16/21 at 0758 by ALFRED CERNA RT Amended: Links added.
[2021-03-16] MEDS: PANTOPRAZOLE 40 MG TABLET.DR PO SCH (08:14)
[2021-03-16] MEDS: GABAPENTIN 100 MG CAPSULE PO SCH (08:14)
[2021-03-16] MEDS: MUPIROCIN OINT 2% 22 GM TUBE NS SCH ×2 (08:14→20:29)
[2021-03-16] MEDS: APIXABAN 5 MG TABLET PO SCH ×2 (08:15→16:38)
[2021-03-16] MEDS: CLOTRIMAZOLE 1% 15 GM TUBE TP SCH ×2 (08:15→16:39)
[2021-03-16] MEDS ORDERED: NEPRO VAN 237 ML CAN PO PRN (11:30)
--- NOTE | 2021-03-16 14:00 | NUR ---
MRI TECHNICIAN NOTES CALLED LAB TO F/U REGARDING THE BLOOD, THEY SAID THAT BLOOD NOT AVAILABLE YET AND WILL CALL WHEN AVAILABLE. WILL F/U
--- NOTE | 2021-03-16 17:18 | NUR ---
LETTERPRESS SETTER NOTES PIERO (FRIEND) PICKED UP PATIENT ALL BELONGINGS, SPOKE WITH JOO (DPOA) AND SAID TO GIVE IT TO HIM, ALL BELONGINGS CHECKED AND SIGNED OUT. UPDATES REGARDING STATUS AND ALL QUESTIONS ANSWERED. WILL CONTINUE TO MONITOR.
[2021-03-16] MEDS ORDERED: CEFTRIAXONE 1GM BAG (ER ONLY) 1 GM/50 ML PIGGYBACK IV ONE (17:30)
[2021-03-16] MEDS: CEFTRIAXONE 1 G in IV D5W 50 ML IV SCH (18:16)
--- NOTE | 2021-03-16 19:00 | NUR ---
PATIENT IN BED RESTING, ALERT AND ORIENTED X2-3. ON O2 5L VIA NASAL CANNULA. O2 SAT 94%. NO SIGNS OF DISTRESS.HAVE RFEMORAL QUINTIN HD CATH, , ADORNO CATH DRAINING BLOOD TINGED COLORED VIA GRAVITY. IV ACCESS ON LAURA PICC AND RIGHT AC#18 PATENT AND INTACT. INFUSING LEVO 0.03MCG NO SIGNS OF ANY INFILTRATION. PLACED BED LOCKED AND IN LOWEST POSITION. CALL LIGHT WITHIN REACH. WILL CONT TO MONITOR
--- NOTE | 2021-03-16 19:10 | NUR ---
CALLED LAB AND F/U WITH PT BLOOD, BLOOD NOT YET AVAILABLE WILL INFORMED NURSE ONCE IT WAS AVAILABLE, REQUEST ALREADY SEND TO [place] PER THE BLOOD BANK STAFF
--- NOTE | 2021-03-16 19:25 | NUR ---
CHIEF CONSOLE OPERATOR NOTES PATIENT IN BED RESTING, ALERT AND ORIENTED X2. ON O2 5L VIA NASAL CANNULA. O2 SAT 94%. NO SIGNS OF DISTRESS NOTED THROUGHOUT THE SHIFT. NOTED WITH QUINTIN HD CATH, ADORNO CATH DRAINING VIA GRAVITY, NOTED WITH HEMATURIA, MADE AWARE. AWAITING FOR BLOOD TRANSFUSION, BLOOD NOT AVAILABLE. IV ACCESS ON ALURA PICC AND RIGHT AC#18 PATENT AND INTACT, SAFETY MEASURES MAINTAINED, BED IN LOWEST LOCKED POSITION WITH SIDE RAILS UP X2, CALL LIGHT WITHIN REACH. ENDORSED TO MULTIPLE TUBE WINDING MACHINE OPERATOR NURSE FOR JAMIL.
[2021-03-17] VITALS (47 sets, daily range): BP systolic 86–116; BP diastolic 36–73
[2021-03-17] MEDS: IPRATROPIUM NEB FS 0.5 MG/2.5 ML AMPUL.NEB NEB SCH ×5 (01:14→23:41)
[2021-03-17] MEDS: ACETYLCYSTEINE 10% SOLN 400 MG/4 ML VIAL NEB SCH ×4 (01:15→23:41)
--- NOTE | 2021-03-17 02:50 | NUR ---
BLOOD ALREADY AVAILABLE, V/S CHECKED AND RECORDED, BLOOD VERIFICATION DONE WITH 2 NURSES, BLOOD TRANSFUSION STARTED WILL CONT TO MONITOR
--- NOTE | 2021-03-17 03:36 | NUR ---
BLOOD TRANSFUSION ONGOING WITH CURRENT V/S BP 94/53 HR 116 TEMP 96.9 SPO2 96% ON 5L O2 VIA NC NO SIGN OF RESPIRATORY DISTRESS NO TRANSFUSION REACTION NOTED WILL CONT TO MONITOR
--- NOTE | 2021-03-17 05:47 | NUR ---
BLOOD TRANSFUSION OF 1 PRBC COMPLETED, TOLERATING WELL, WITH LATEST VS TEMP 97 HR 116 BP 92/53 SPO2 94% ON O2 5L VIA NC NO SIGN OF RESPIRATORY DISTRESS, NO TRANSFUSION REACTION NOTED WILL CONT TO MONITOR THE PT
--- NOTE | 2021-03-17 07:05 | NUR ---
RN NOTES RECEIVED PATIENT ON BED RESTING, ALERT AND ORIENTED X2. ON O2 5L VIA NASAL CANNULA. O2 SAT 94%. NO SIGNS OF DISTRESS NOTED AT THIS TIME. R FEMORAL QUINTIN HD CATH SITE CLEAN,DRY AND INTACT, ADORNO CATH DRAINING TO GRAVITY WITH TEA COLORED URINE , IV ACCESS ON LAURA PICC AND RIGHT AC#18 PATENT, INTACT. SAFETY MEASURES MAINTAINED, BED IN LOWEST LOCKED POSITION WITH SIDE RAILS UP X3, CALL LIGHT WITHIN REACH. WILL CONT TO MONITOR.
[2021-03-17] MEDS: GABAPENTIN 100 MG CAPSULE PO SCH (08:12)
[2021-03-17] MEDS: PANTOPRAZOLE 40 MG TABLET.DR PO SCH (08:12)
[2021-03-17] MEDS: CLOTRIMAZOLE 1% 15 GM TUBE TP SCH ×2 (08:13→16:53)
[2021-03-17 09:24] LABS: EOSINOPHILS % (AUTO) 0.5 % (0.0-6.0); HEMATOCRIT 25 % (39-51); HEMOGLOBIN 7.9 g/dL (13.5-17.5); LYMPHOCYTES # (AUTO) 0.6 K/uL (0.8-4.8); LYMPHOCYTES % (AUTO) 5.2 % (20.0-44.0); MEAN CORPUSCULAR HGB CONC 32 g/dl (31.0-36.0); MEAN CORPUSCULAR VOLUME 85 fL (80-96); MONOCYTES # (AUTO) 0.7 K/uL (0.1-1.30); MONOCYTES % (AUTO) 5.9 % (2.0-12.0); NEUTROPHILS # (AUTO) 10.3 K/uL (1.8-8.9); NEUTROPHILS % (AUTO) 88.4 % (43.0-81.0); PLATELET COUNT (AUTO) 109 K/uL (150-450); RED BLOOD CELL COUNT(AUTO) 2.92 MIL/uL (4.5-6.0); WHITE BLOOD COUNT (AUTO) 11.6 K/uL (4.3-11.0)
[2021-03-17] MEDS: APIXABAN 5 MG TABLET PO SCH ×2 (09:47→16:53)
--- NOTE | 2021-03-17 09:47 | NUR ---
RN NOTES DR BOND NOTIFIED REGARDING LAB RESULTS, ELIQUIS GIVEN PER DR BOND ORDER ,
[2021-03-17 10:29] LABS: CALCIUM, SERUM 8.1 mg/dL (8.5-10.1); CREATININE 2.5 mg/dL (0.6-1.3); PHOSPHORUS 3.3 mg/dL (2.5-4.9); POTASSIUM 4.3 mmol/L (3.5-5.1)
[2021-03-17] MEDS ORDERED: CLINDAMYCIN IV RTU IN D5W 900 MG/50 ML PIGGYBACK IV SCH (10:30)
--- NOTE | 2021-03-17 11:00 | NUR ---
RN NOTES WOUND CULTURE OF LEFT LEG DONE AND SENT TO LAB PER MD ORDER .
[2021-03-17] MEDS: CLINDAMYCIN 900 MG in IV D5W 50 ML IV SCH ×2 (11:44→21:20)
--- NOTE | 2021-03-17 14:00 | NUR ---
RN NOTES NO DISTRESS NOTED , CONTINUE TO MONITOR.
[2021-03-17] MEDS: CEFTRIAXONE 1 G in IV D5W 50 ML IV SCH (17:02)
--- NOTE | 2021-03-17 18:02 | NUR ---
RN NOTES PT REMANINS ON 5L O2 N/C , O2 SAT WNL, ADORNO DRAINING TO GRAVITY, SR UP x3, CALL LIGHT WITHIN EASY REACH, BED LOCKED AND IN LOWEST POSITION, WILL ENDORSE TO PRACTICE BILLING ASSOCIATE NURSE FOR CONTINUITY OF CARE .
--- NOTE | 2021-03-17 19:46 | NUR ---
PHOSPHORUS PROCESSING SUPERVISOR OPENING NOTE RECEIVED PATIENT IN BED RESTING, ALERT AND ORIENTED X2. ON O2 5L VIA NASAL CANNULA. O2 SAT 94%. PT. DENIES ANY PAIN. (R) FEMORAL QUINTIN HD CATH SITE CLEAN, DRY AND INTACT. ADORNO CATH DRAINING TO GRAVITY WITH TEA COLORED URINE , FREE OF KINKS OR OBSTRUCTIONS. IV ACCESS NOTED ON (R) UA PICC AND RIGHT AC #18 BOTH FLUSHED, PATENT, WITH CLEAN AND DRY DRESSING. SAFETY MEASURES IMPLEMENTED: BED IN LOWEST LOCKED POSITION WITH SIDE RAILS UP X3, CALL LIGHT WITHIN REACH, HOB ELEVATED 30 DEGREES. NO ACUTE DISTRESS NOTED AT THIS TIME.
[2021-03-18] VITALS (14 sets, daily range): BP systolic 89–107; BP diastolic 48–71
[2021-03-18 04:19] LABS: BASOPHILS % (AUTO) 0.1 % (0.0-2.0); EOSINOPHILS % (AUTO) 1.9 % (0.0-6.0); HEMATOCRIT 23 % (39-51); HEMOGLOBIN 7.4 g/dL (13.5-17.5); LYMPHOCYTES # (AUTO) 0.6 K/uL (0.8-4.8); LYMPHOCYTES % (AUTO) 5.9 % (20.0-44.0); MEAN CORPUSCULAR HGB CONC 32 g/dl (31.0-36.0); MEAN CORPUSCULAR VOLUME 85 fL (80-96); MONOCYTES # (AUTO) 0.7 K/uL (0.1-1.30); MONOCYTES % (AUTO) 6.9 % (2.0-12.0); NEUTROPHILS # (AUTO) 9.1 K/uL (1.8-8.9); NEUTROPHILS % (AUTO) 85.2 % (43.0-81.0); PLATELET COUNT (AUTO) 108 K/uL (150-450); RED BLOOD CELL COUNT(AUTO) 2.73 MIL/uL (4.5-6.0); WHITE BLOOD COUNT (AUTO) 10.7 K/uL (4.3-11.0)
[2021-03-18 04:28] LABS: CALCIUM, SERUM 7.9 mg/dL (8.5-10.1); CREATININE 2.5 mg/dL (0.6-1.3); POTASSIUM 4.4 mmol/L (3.5-5.1)
[2021-03-18 04:31] LABS: PHOSPHORUS 3.7 mg/dL (2.5-4.9)
[2021-03-18] MEDS: CLINDAMYCIN 900 MG in IV D5W 50 ML IV SCH ×3 (04:52→21:38)
--- NOTE | 2021-03-18 06:19 | NUR ---
PRINTED CIRCUIT BOARD PANELS PLATER CLOSING NOTE PATIENT IN BED SLEEPING, ALERT AND ORIENTED X2-3. ON O2 5L VIA NASAL CANNULA. O2 SAT 96%. PT. DENIES ANY PAIN. (R) FEMORAL QUINTIN HD CATH SITE CLEAN, DRY AND INTACT. ADORNO CATH DRAINING TO GRAVITY WITH TEA COLORED URINE WITH SEDIMENTS , FREE OF KINKS OR OBSTRUCTIONS. IV ACCESS ON (R) UA PICC AND RIGHT AC #18 BOTH FLUSHED, PATENT, WITH CLEAN AND DRY DRESSING. PT KEPT CLEAN AND DRY. WOUND CARE COMPLETED ORDERED. ALL ORDERS MET THROUGHOUT SHIFT. AIR MATTRESS PUT ON BED. SAFETY MEASURES IMPLEMENTED: BED IN LOWEST LOCKED POSITION WITH SIDE RAILS UP X3, CALL LIGHT WITHIN REACH, HOB ELEVATED 30 DEGREES. NO ACUTE DISTRESS NOTED AT THIS TIME. WILL ENDORSE TO MORNING SHIFT RN.
--- NOTE | 2021-03-18 07:30 | NUR ---
OPENING NOTE: REPORT RECEIVED FROM ADOLFO SOLARES. PT ALERT OX2-3, COOPERATIVE. PT'S LAST DIALYSIS WAS 03/12/2021, PRN DIALYSIS NOW, NOT SCHEDULED. POSSIBLE DOWNGRADE OUT OF ICU TODAY, AWAITING ORDERS. PT CURRENTLY ON 5L NC. NO IVF INFUSING. PT CHECKED ON HOURLY AND PRN BY NURSING STAFF.
[2021-03-18] MEDS: ACETYLCYSTEINE 10% SOLN 400 MG/4 ML VIAL NEB SCH ×3 (08:05→23:05)
[2021-03-18] MEDS: IPRATROPIUM NEB FS 0.5 MG/2.5 ML AMPUL.NEB NEB SCH ×3 (08:12→20:25)
[2021-03-18] MEDS: APIXABAN 5 MG TABLET PO SCH ×2 (08:39→16:23)
[2021-03-18] MEDS: PANTOPRAZOLE 40 MG TABLET.DR PO SCH (08:40)
[2021-03-18] MEDS: GABAPENTIN 100 MG CAPSULE PO SCH (08:40)
[2021-03-18] MEDS: CLOTRIMAZOLE 1% 15 GM TUBE TP SCH ×2 (08:40→16:21)
--- NOTE | 2021-03-18 10:35 | NUR ---
REPORT CALLED TO HEATH SOLARES FOR PATIENT TRANSFER TO ROOM 310-2.
--- NOTE | 2021-03-18 11:05 | NUR ---
PT LEFT ICU AT 1055 VIA BED ACCOMPANIED BY RN ON O2 PER NASAL CANNULA. ALL PERSONAL BELONGINGS AND MEDICATIONS SENT WITH PATIENT. HEATH SOLARES MET EMERGENCY DETAIL DRIVER IN RO0M AND WAS IN ROOM WITH EMERGENCY DETAIL DRIVER LEFT.
--- NOTE | 2021-03-18 11:20 | NUR ---
NURSE MIDWIFE NOTE RECEIVED PATIENT IN BED FROM ICU, PATIENT IS A/O X3, ABLE TO MAKE NEEDS KNOWN. PATIENT IS BREATHING EVENLY AND NONLABORED ON 5LPM NASAL CANNULA 02 SAT 96%. PATIENTS VITALS BP 96/53, HR 105, RR 18 AND TEMP 97.4. NO SIGNS OF DISTRESS NOTED. PATIENT DOES NOT COMPLAIN OF PAIN AT THIS TIME. PATIENT HAS [place]TON ACCESS TO LAURA PICC LINE AND RAC #18 GAUGE PATENT AND INTACT. PATIENT HAS A R FEMORAL ROSALINDA. PATIENT HAS DRESSING ON BLE C/D/I. PATIENT'S BELONGINGS ACCOUNTED FOR PATIENT WAS OREITNED TO THE ROOM AND HOW TO USE THE CALL LIGHT. SAFETY MEASURES IN PLACE BED LOW LOCKED AND CALL LIGHT WITHIN REACH. WILL CONTINUE TO MONITOR
[2021-03-18] MEDS: MORPHINE SULFATE INJ 2 MG/ML DISP.SYRIN IM PRN (16:21)
[2021-03-18] MEDS: CEFTRIAXONE 1 G in IV D5W 50 ML IV SCH (17:02)
--- NOTE | 2021-03-18 18:30 | NUR ---
LOW PRESSURE FIRER CLOSING NOTE PATIENT IN BED RESTING. PATIENT IS A/O X3, ABLE TO MAKE NEEDS KNOWN. PATIENT IS BREATHING EVENLY AND NONLABORED ON 5LPM NASAL CANNULA 02 SAT 96%. NO SIGNS OF DISTRESS NOTED. PATIENT DOES NOT COMPLAIN OF PAIN AT THIS TIME. PATIENT IS ON TELE MONITOR SHOWING NSR. PATIENT HAS IV ACCESS TO LAURA PICC LINE AND RAC #18 GAUGE PATENT AND INTACT. PATIENT HAS A R FEMORAL ROSALINDA. PATIENT HAS DRESSING ON BLE C/D/I. ALL MEDICATION WAS GIVEN ORDERED. WOUND CARE PERFORMED DURING SHIFT. SAFETY MEASURES IN PLACE BED LOW LOCKED AND CALL LIGHT WITHIN REACH. WILL ENDORSE TO ONCOMING SHIFT
--- NOTE | 2021-03-18 19:41 | NUR ---
RN OPENING NOTES; RECEIVED PATIENT SLEEP IN BED COMFORTABLY, BED IN LOW POSITION, CALL LIGHTS WITHIN REACH, NO COMPLAIN OF PAIN AND DISCOMFORT AT THIS TIME, PATIENT IS NONE VERBAL ON G TUBE FEEDING GLUCERNA @80CC PER HOUR INFUSING WELL, WITH IV LINE AT LEFT HAND #20 WITH ONGOING ROCEPHIN, BED NO PAIN AND DISCOMFORT AT THIS TIME, KEPT CLEAN AND DRY FOR D/C AWAITING TO BE PROMOTIONS PRODUCER, WILL CONTINUE TO MONITOR. Addendum: 03/18/21 at 1947 by AKIN WILD RN RN NOTES: WRONG CHARTING, CHARTING INTENDED FOR PT. [phone]
--- NOTE | 2021-03-18 21:52 | NUR ---
RN OPENING NOTES: RECEIVED PATIENT SLEEP IN BED COMFORTABLY, BED IN LOW POSITION, CALL LIGHTS WITHIN REACH, NO COMPLAIN OF PAIN AND DISCOMFORT AT THIS TIME, ON TELE MONITORING WITH READING OF ST- 106 WITH BBB ASYMPTOMATIC, PATIENT, WITH PIC LINE AT LAURA INFUSING WELL, NO COMPLAIN OF PAIN AND DISCOMFORT AT THIS TIME, KEPT CLEAN AND DRY, WILL CONTINUE TO MONITOR.
[2021-03-18] MEDS: HYDROCODONE/APAP 5/325MG TABLET PO PRN (22:29)
[2021-03-19] VITALS: BP 88/55
[2021-03-19] MEDS: IPRATROPIUM NEB FS 0.5 MG/2.5 ML AMPUL.NEB NEB SCH ×4 (00:22→19:55)
[2021-03-19 04:00] VITALS: BP 90/54
[2021-03-19] MEDS: HYDROCODONE/APAP 5/325MG TABLET PO PRN ×3 (04:51→19:03)
[2021-03-19] MEDS: CLINDAMYCIN 900 MG in IV D5W 50 ML IV SCH ×3 (05:13→21:16)
--- NOTE | 2021-03-19 06:56 | NUR ---
VACUUM METALIZING SUPERVISOR CLOSING NOTES: PATIENT SLEEP IN BED COMFORTABLY, BED IN LOW POSITION, CALL LIGHTS WITHIN REACH, NO COMPLAIN OF PAIN AND DISCOMFORT AT THIS TIME, WITH PICC LINE LAURA INFUSING WELL, AND RAC#18, PATIENT, ON TELE MONITORING SR-98 WITH BBB NO SYMPTOMS WAS NOTED, BLE DRESSING CHANGE, PATIENT KEPT CLEAN AND DRY,ALL NEEDS MET, ENDORSE TO INCOMING SHIFT.
[2021-03-19 07:32] LABS: BASOPHILS # (AUTO) 0.1 K/uL (0.0-0.2); BASOPHILS % (AUTO) 0.5 % (0.0-2.0); HEMATOCRIT 24 % (39-51); HEMOGLOBIN 7.6 g/dL (13.5-17.5); LYMPHOCYTES # (AUTO) 0.6 K/uL (0.8-4.8); LYMPHOCYTES % (AUTO) 5.8 % (20.0-44.0); MEAN CORPUSCULAR HGB CONC 31 g/dl (31.0-36.0); MEAN CORPUSCULAR VOLUME 86 fL (80-96); MONOCYTES # (AUTO) 0.8 K/uL (0.1-1.30); MONOCYTES % (AUTO) 7.1 % (2.0-12.0); NEUTROPHILS # (AUTO) 9.3 K/uL (1.8-8.9); NEUTROPHILS % (AUTO) 83.6 % (43.0-81.0); PLATELET COUNT (AUTO) 113 K/uL (150-450); RED BLOOD CELL COUNT(AUTO) 2.82 MIL/uL (4.5-6.0); WHITE BLOOD COUNT (AUTO) 11.1 K/uL (4.3-11.0)
[2021-03-19] MEDS: ACETYLCYSTEINE 10% SOLN 400 MG/4 ML VIAL NEB SCH ×2 (07:35→12:58)
[2021-03-19 07:53] LABS: CREATININE 2.4 mg/dL (0.6-1.3); PHOSPHORUS 4.8 mg/dL (2.5-4.9); POTASSIUM 4.6 mmol/L (3.5-5.1)
--- NOTE | 2021-03-19 07:59 | NUR ---
EXHIBIT SPECIALIST OPENING NOTES RECEIVED PATIENT IN BED, AWAKE, A/O X3. PATIENT ON OXYGEN THERAPY @ 2LPM VIA NASAL CANNULA; BREATHING EVEN AND UNLABORED, NO SOB NOTED AT THIS TIME. COMPLAINING OF MILD LEG PAIN. TELE MONITOR WITH A CURRENT READING OF NSR 98. IV ACCESS OF RAC G #18 AND A LAURA PICC PRESENT AND INTACT. ADORNO CATH IN PLACE DRAINING URINE. SAFETY PRECAUTIONS IN PLACE; BED IN LOW POSITION AND LOCKED, RAILS UP X2, CALL LIGHT WITHIN REACH. WILL CONTINUE TO MONITOR PATIENT.
[2021-03-19 08:00] VITALS: BP 100/56
[2021-03-19] MEDS: PANTOPRAZOLE 40 MG TABLET.DR PO SCH (08:26)
[2021-03-19] MEDS: GABAPENTIN 100 MG CAPSULE PO SCH (08:26)
[2021-03-19] MEDS: APIXABAN 5 MG TABLET PO SCH ×2 (08:27→16:06)
[2021-03-19] MEDS: CLOTRIMAZOLE 1% 15 GM TUBE TP SCH ×2 (08:29→16:05)
[2021-03-19] MEDS: POLYETHYLENE GLYCOL 3350 17 GM POWD.PACK PO PRN (10:48)
[2021-03-19] MEDS ORDERED: CEFAZOLIN 2 GM in IV D5W 100 ML IV ONE (11:00)
--- NOTE | 2021-03-19 11:07 | NUR ---
QUARTZ MINER NOTES PATIENT COMPLAINING OF GENERALIZED PAIN; ASKING FOR PAIN MEDICATION. PRN NORCO ADMINISTERED. WILL REASSESS.
[2021-03-19 12:00] VITALS: BP 107/70
[2021-03-19] MEDS ORDERED: SORBITOL SOLUTION 30 ML PO ONE (12:00)
[2021-03-19 16:00] VITALS: BP 96/52
--- NOTE | 2021-03-19 16:06 | NUR ---
BURNER TECHNICIAN NOTES 1700 ELIQUIS ON HOLD. PATIENT NOTED WITH LIGHT NOSE BLEED.
[2021-03-19] MEDS: DOCUSATE SODIUM 100 MG CAPSULE PO SCH (16:21)
--- NOTE | 2021-03-19 18:29 | NUR ---
TACKING MACHINE OPERATOR CLOSING NOTES PATIENT REMAINS IN BED, AWAKE, A/O X3 AND WATCHING TV. PATIENT ON OXYGEN THERAPY @ 2LPM VIA NASAL CANNULA; BREATHING EVEN AND UNLABORED, NO SOB NOTED AT THIS TIME. PAIN TREATED WITH PRN NORCO. TELE MONITOR WITH A CURRENT READING OF ST 103 WITH BBB. IV ACCESS OF RAC G #18 AND A LAURA PICC PRESENT AND INTACT. ADORNO CATH IN PLACE DRAINING URINE WITH 400 MLS OUTPUT FOR THE DAY. ALL NEEDS ATTENDED DURING THE DAY. SAFETY PRECAUTIONS IN PLACE; BED IN LOW POSITION AND LOCKED, RAILS UP X2, CALL LIGHT WITHIN REACH. WILL ENDORSE TO LAB MANAGER NURSE.
--- NOTE | 2021-03-19 19:25 | NUR ---
STUDENT FINANCIAL SERVICES COUNSELOR OPENING NOTES: RECEIVED PATIENT AWAKE IN BED, BED IN LOW POSITION, CALL LIGHTS WITHIN REACH, NO COMPLAIN OF PAIN AND DISCOMFORT AT THIS TIME, PATIENT ALERT AND ORIENTED X3 ABLE TO MAKE NEEDS KNOWN, ON TELE MONITORING ST 103 WITH BBB NO SYMPTOMS OR ANY COMPLAIN OF PAIN, PATIENT KEPT CLEAN AND DRY ALL NEEDS MET, WILL CONTINUE TO MONITOR
[2021-03-19 20:00] VITALS: BP 100/55
[2021-03-19] MEDS: CEFAZOLIN 1 GM in IV D5W 50 ML IV SCH (23:58)
[2021-03-20] VITALS: BP 95/54
[2021-03-20] MEDS: ACETYLCYSTEINE 10% SOLN 400 MG/4 ML VIAL NEB SCH ×3 (00:16→13:58)
[2021-03-20] MEDS: HYDROCODONE/APAP 5/325MG TABLET PO PRN ×4 (01:17→22:22)
[2021-03-20] MEDS: IPRATROPIUM NEB FS 0.5 MG/2.5 ML AMPUL.NEB NEB SCH ×4 (01:57→20:17)
[2021-03-20 04:00] VITALS: BP 97/53
[2021-03-20] MEDS: CLINDAMYCIN 900 MG in IV D5W 50 ML IV SCH ×2 (05:42→13:27)
--- NOTE | 2021-03-20 06:38 | NUR ---
RN CLOSING NOTES: RECEIVED PATIENT WAKE IN BED, BED IN LOW POSITION, CALL LIGHTS WITHIN REACH, NO COMPLAIN OF PAIN AND DIOSCOMFORT AT THIS TIME, ON O2 INHALATION AT 3LPM WITH NO RESP DISTRESS OBSERVE, DRESSING ON BLE CHANGE ALL NEEDS MET KEPT CLEAN AND DRY, WILL CONTINUE TO MONITOR.
[2021-03-20 06:42] LABS: BASOPHILS # (AUTO) 0.1 K/uL (0.0-0.2); BASOPHILS % (AUTO) 0.4 % (0.0-2.0); EOSINOPHILS % (AUTO) 2.2 % (0.0-6.0); HEMATOCRIT 25 % (39-51); HEMOGLOBIN 7.8 g/dL (13.5-17.5); LYMPHOCYTES # (AUTO) 0.5 K/uL (0.8-4.8); MEAN CORPUSCULAR HGB CONC 31 g/dl (31.0-36.0); MEAN CORPUSCULAR VOLUME 86 fL (80-96); MONOCYTES # (AUTO) 0.9 K/uL (0.1-1.30); MONOCYTES % (AUTO) 6.4 % (2.0-12.0); NEUTROPHILS # (AUTO) 11.5 K/uL (1.8-8.9); PLATELET COUNT (AUTO) 137 K/uL (150-450); WHITE BLOOD COUNT (AUTO) 13.2 K/uL (4.3-11.0)
[2021-03-20 06:55] LABS: CALCIUM, SERUM 8.1 mg/dL (8.5-10.1); CREATININE 2.6 mg/dL (0.6-1.3); PHOSPHORUS 4.9 mg/dL (2.5-4.9); POTASSIUM 4.9 mmol/L (3.5-5.1)
--- NOTE | 2021-03-20 07:27 | NUR ---
COTTON FEEDER OPENING NOTES RECEIVED PATIENT IN BED ASLEEP, EASY TO AROUSE. ALERT AN ORIENTED X 3.NOT IN ANY APPARENT DISTRESS. IV ACCESS RAC#18 AND LAURA PICC LINE PATENT AND INTACT. BREATHING IS EVEN AND UNLABORED, ON 3L NC SATURATING AT %97. SAFETY MEASURES IN PLACE WITH BED LOCKED AT LOW POSITION AND SIDE RAILS UP X2. CALL LIGHT IS WITHIN REACH. WILL CONTINUE TO MONITOR THROUGHOUT SHIFT.
[2021-03-20] MEDS: DOCUSATE SODIUM 100 MG CAPSULE PO SCH ×2 (08:06→16:33)
[2021-03-20] MEDS: PANTOPRAZOLE 40 MG TABLET.DR PO SCH (08:06)
[2021-03-20] MEDS: GABAPENTIN 100 MG CAPSULE PO SCH (08:07)
[2021-03-20] MEDS: APIXABAN 2.5 MG TABLET PO SCH ×2 (08:57→16:34)
[2021-03-20] MEDS: CLOTRIMAZOLE 1% 15 GM TUBE TP SCH ×2 (09:03→16:38)
[2021-03-20] MEDS: CEFAZOLIN 1 GM in IV D5W 50 ML IV SCH ×2 (11:02→22:22)
--- NOTE | 2021-03-20 18:50 | NUR ---
OFFSET PROOF PRESS OPERATOR CLOSING NOTES PATIENT IN BED RESTING COMFORTABLY. ALERT AN ORIENTED X 3. NOT IN ANY APPARENT DISTRESS. ALL NEEDS MET THROUGHOUT SHIFT. SAFETY MEASURES MAINTAINED WITH BED LOCKED AT LOW POSITION AND SIDE RAILS UP X2. CALL LIGHT IS WITHIN REACH. WILL ENDORSE CONTINUITY OF CARE TO ONCOMING SHIFT.
--- NOTE | 2021-03-20 19:33 | NUR ---
RN OPENING NOTES: RECEIVED PATIENT SLEEP IN BED COMFORTABLY, BED IN LOW POSITION, CALL LIGHTS WITHIN REACH, NO COMPLAIN OF PAIN AND DISCOMFORT AT THIS TIME, ON NC @3LPM NO SHORTNESS OF BREATH, PATIENT KEPT CLEAN AND DRY ALL NEEDS MET, WILL CONTINUE TO MONITOR.
[2021-03-20 20:11] VITALS: BP 97/57
[2021-03-21] MEDS: ACETYLCYSTEINE 10% SOLN 400 MG/4 ML VIAL NEB SCH ×3 (00:25→13:16)
[2021-03-21] MEDS: IPRATROPIUM NEB FS 0.5 MG/2.5 ML AMPUL.NEB NEB SCH ×4 (00:30→20:03)
[2021-03-21] MEDS: HYDROCODONE/APAP 5/325MG TABLET PO PRN (04:57)
--- NOTE | 2021-03-21 06:45 | NUR ---
MS RN CLOSING NOTE: PATIENT WAS PLACE IN BED COMFORTABLY, AWAKE, NO COMPLAIN OF PAIN AND DISCOMFORT, BED IN LOW POSITION, CALL LIGHTS WITHIN REACH, ON BED REST, PICC LINE AT LAURA INFUSING WELL, WITH FC - 600 URINE OUTPUT, ON O2 INHALATION AT 3 LPM, WEEKLY SKIN ASSESSMENT DONE AND DOCUMENTED, HOB AT 30 DEGREE WITH NO RESP. DISTRESS OBSERVED, PATIENT KEPT CLEAN AND DRY, ALL NEEDS MET, ENDORSE TO INCOMING SHIFT.
[2021-03-21 06:52] LABS: BASOPHILS # (AUTO) 0.1 K/uL (0.0-0.2); BASOPHILS % (AUTO) 0.4 % (0.0-2.0); EOSINOPHILS % (AUTO) 1.5 % (0.0-6.0); HEMATOCRIT 27 % (39-51); HEMOGLOBIN 8.4 g/dL (13.5-17.5); LYMPHOCYTES # (AUTO) 0.7 K/uL (0.8-4.8); MEAN CORPUSCULAR HGB CONC 32 g/dl (31.0-36.0); MEAN CORPUSCULAR VOLUME 86 fL (80-96); MONOCYTES # (AUTO) 1.1 K/uL (0.1-1.30); MONOCYTES % (AUTO) 6.3 % (2.0-12.0); NEUTROPHILS # (AUTO) 14.9 K/uL (1.8-8.9); NEUTROPHILS % (AUTO) 87.8 % (43.0-81.0); PLATELET COUNT (AUTO) 163 K/uL (150-450); RED BLOOD CELL COUNT(AUTO) 3.08 MIL/uL (4.5-6.0)
--- NOTE | 2021-03-21 07:30 | NUR ---
MS RN OPENING NOTES RECEIVED PATIENT IN BED ASLEEP, EASY TO AROUSE. ALERT AN ORIENTED X 3.NOT IN ANY APPARENT DISTRESS. IV ACCESS RAC#18 AND LAURA PICC LINE PATENT AND INTACT. BREATHING IS EVEN AND UNLABORED, ON 3L NC SATURATING AT %98. SAFETY MEASURES IN PLACE WITH BED LOCKED AT LOW POSITION AND SIDE RAILS UP X2. CALL LIGHT IS WITHIN REACH. WILL CONTINUE TO MONITOR THROUGHOUT SHIFT.
[2021-03-21 07:35] LABS: CALCIUM, SERUM 8.4 mg/dL (8.5-10.1); CREATININE 2.7 mg/dL (0.6-1.3); PHOSPHORUS 5.2 mg/dL (2.5-4.9); POTASSIUM 5.1 mmol/L (3.5-5.1)
[2021-03-21 08:00] VITALS: BP 98/57
[2021-03-21] MEDS: PANTOPRAZOLE 40 MG TABLET.DR PO SCH (08:12)
[2021-03-21] MEDS: DOCUSATE SODIUM 100 MG CAPSULE PO SCH ×2 (08:13→16:43)
[2021-03-21] MEDS: GABAPENTIN 100 MG CAPSULE PO SCH (08:13)
[2021-03-21] MEDS: APIXABAN 2.5 MG TABLET PO SCH ×2 (08:14→16:45)
[2021-03-21] MEDS: CLOTRIMAZOLE 1% 15 GM TUBE TP SCH ×2 (08:16→16:46)
[2021-03-21] MEDS ORDERED: POLYETHYLENE GLYCOL 3350 17 GM POWD.PACK PO ONE (09:00)
[2021-03-21] MEDS ORDERED: BISACODYL SUPP (10 MG) 10 MG/SUPP.RECT SUPP.RECT RC ONE (09:00)
[2021-03-21] MEDS ORDERED: DOCUSATE SODIUM 100 MG CAPSULE PO SCH (09:00)
[2021-03-21] MEDS: MORPHINE SULFATE INJ 2 MG/ML DISP.SYRIN IV PRN ×3 (10:04→18:47)
--- NOTE | 2021-03-21 10:05 | NUR ---
MS RN NOTES PATIENT C/O GENERALIZED PAIN AND CHEST PAIN 02/22, RECEIVED NEW ORDER FOR MORPHINE 2MG IVP Q4H PRN FOR PAIN AND PSYCHIATRY CONSULT. ORDERS READ BACK AND CARRIED OUT.
[2021-03-21] MEDS: CEFAZOLIN 1 GM in IV D5W 50 ML IV SCH ×2 (10:41→22:41)
[2021-03-21] MEDS ORDERED: DIVALPROEX SODIUM 250 MG TABLET.DR PO SCH (12:00)
[2021-03-21 16:00] VITALS: BP 100/62
--- NOTE | 2021-03-21 18:39 | NUR ---
MS RN CLOSING NOTES PATIENT IN BED RESTING COMFORTABLY. ALERT AN ORIENTED X 3. NOT IN ANY APPARENT DISTRESS. ALL NEEDS MET THROUGHOUT SHIFT. LAURA PICC LINE DRESSING CHANGED WITH STERILE FIELD. SAFETY MEASURES MAINTAINED WITH BED LOCKED AT LOW POSITION AND SIDE RAILS UP X2. CALL LIGHT IS WITHIN REACH. WILL ENDORSE CONTINUITY OF CARE TO ONCOMING SHIFT.
--- NOTE | 2021-03-21 19:15 | NUR ---
MS/RN OPENING NOTE RECEIVED PATIENT SLEEPING IN BED. ALERT AND ORIENTED X 3. ABLE TO MAKE NEEDS KNOWN. DENIES PAIN AT THIS TIME. CONTINUES ON O2 3L VIA NC WITH NO S/SX OF RESPIRATORY DISTRESS NOTED. IV ACCESS TO RIGHT AC #18G AND RIGHT FEMORAL LINE FOR HD. BOTH LINES INTACT. CONTINUES ON IV ABX. CALL LIGHT WITHIN REACH. ASPIRATION, FALL AND SAFETY PRECAUTIONS MAINTAINED. WILL CONTINUE TO MONITOR.
[2021-03-21 20:00] VITALS: BP 93/57
[2021-03-21] MEDS: risperiDONE 0.25 MG TABLET PO SCH (20:30)
[2021-03-22] MEDS: ACETYLCYSTEINE 10% SOLN 400 MG/4 ML VIAL NEB SCH ×4 (01:17→23:59)
[2021-03-22] MEDS: IPRATROPIUM NEB FS 0.5 MG/2.5 ML AMPUL.NEB NEB SCH ×4 (01:17→20:10)
[2021-03-22] MEDS: MORPHINE SULFATE INJ 2 MG/ML DISP.SYRIN IV PRN ×4 (03:16→22:11)
--- NOTE | 2021-03-22 03:51 | NUR ---
MS/RN NOTE SPUTUM SAMPLE COLLECTED, LABELLED AND PLACED IN SPECIMEN FRIDGE.
--- NOTE | 2021-03-22 06:10 | NUR ---
MS/RN CLOSING NOTE PATIENT CURRENTLY SLEEPING IN BED. ALERT AND ORIENTED X 3. ABLE TO MAKE NEEDS KNOWN. DENIES PAIN AT THIS TIME. CONTINUES ON O2 4L VIA NC WITH NO S/SX OF RESPIRATORY DISTRESS NOTED. IV ACCESS TO RIGHT AC #18G, RIGHT UPPER ARM MIDLINE AND RIGHT FEMORAL LINE FOR HD. ALL IV LINES INTACT. CONTINUES ON IV ABX. SPUTUM AND BLOOD CX'S PENDING. ADORNO CATHETER IN PLACE DRAINING TO GRAVITY. TOTAL OUTPUT IS 250CC OF HUBERT COLORED URINE. CALL LIGHT WITHIN REACH. ASPIRATION, FALL AND SAFETY PRECAUTIONS MAINTAINED. WILL ENDORSE PLAN OF CARE TO ONCOMING SHIFT.
[2021-03-22 08:00] VITALS: BP 100/60
--- NOTE | 2021-03-22 08:00 | NUR ---
m/s leadership development consultant: notes received pt in bed awake, a/ox3. no c/o pain at this time. pt refused to be turned on the side, pt prefers to lie supine with hob elevated at 30 degree.
[2021-03-22] MEDS: DOCUSATE SODIUM 100 MG CAPSULE PO SCH ×2 (09:09→16:32)
[2021-03-22] MEDS: GABAPENTIN 100 MG CAPSULE PO SCH (09:09)
[2021-03-22] MEDS: risperiDONE 0.25 MG TABLET PO SCH ×2 (09:10→16:35)
[2021-03-22] MEDS: PANTOPRAZOLE 40 MG TABLET.DR PO SCH (09:10)
[2021-03-22] MEDS: APIXABAN 2.5 MG TABLET PO SCH ×2 (09:12→16:34)
[2021-03-22] MEDS: CLOTRIMAZOLE 1% 15 GM TUBE TP SCH ×2 (09:13→16:36)
--- NOTE | 2021-03-22 10:00 | NUR ---
m/s machine buffer: notes pt refused to be turned and repositioned on the side, still prefers to lay supine. instructed to call for assistance.
[2021-03-22] MEDS: POLYETHYLENE GLYCOL 3350 17 GM POWD.PACK PO PRN (10:35)
[2021-03-22] MEDS: CEFAZOLIN 1 GM in IV D5W 50 ML IV SCH ×2 (11:05→22:08)
[2021-03-22 11:33] LABS: BASOPHILS # (AUTO) 0.1 K/uL (0.0-0.2); BASOPHILS % (AUTO) 0.3 % (0.0-2.0); EOSINOPHILS % (AUTO) 0.8 % (0.0-6.0); HEMATOCRIT 25 % (39-51); HEMOGLOBIN 7.7 g/dL (13.5-17.5); LYMPHOCYTES # (AUTO) 0.8 K/uL (0.8-4.8); LYMPHOCYTES % (AUTO) 3.5 % (20.0-44.0); MEAN CORPUSCULAR HGB CONC 31 g/dl (31.0-36.0); MEAN CORPUSCULAR VOLUME 86 fL (80-96); MONOCYTES # (AUTO) 1.3 K/uL (0.1-1.30); MONOCYTES % (AUTO) 5.8 % (2.0-12.0); NEUTROPHILS # (AUTO) 19.5 K/uL (1.8-8.9); NEUTROPHILS % (AUTO) 89.6 % (43.0-81.0); PLATELET COUNT (AUTO) 184 K/uL (150-450); RED BLOOD CELL COUNT(AUTO) 2.86 MIL/uL (4.5-6.0); WHITE BLOOD COUNT (AUTO) 21.7 K/uL (4.3-11.0)
[2021-03-22] MEDS: NEPRO VAN 237 ML CAN PO SCH ×2 (11:53→16:36)
--- NOTE | 2021-03-22 12:00 | NUR ---
m/s unattended ground sensor specialist: notes pt refused to be turned and repositioned on the side, still prefers to lay supine. instructed to call for assistance.
--- NOTE | 2021-03-22 14:00 | NUR ---
m/s graphic production artist: notes pt refused to be turned and repositioned on the side, still prefers to lay supine. instructed to call for assistance.
[2021-03-22 16:00] VITALS: BP 109/57
--- NOTE | 2021-03-22 16:00 | NUR ---
m/s ore puncher: notes pt refused to be turned and repositioned on the side, still prefers to lay supine. instructed to call for assistance.
--- NOTE | 2021-03-22 17:00 | NUR ---
m/s head operator sulfide: md visit seen by dr. gallegos.
--- NOTE | 2021-03-22 19:00 | NUR ---
MS RN OPENING NOTE RECEIVED PT AWAKE IN BED. A/OX4. PT ON 4LOXYGEN NC. NO SOB NOTED. NO S/S OF RESPIRATORY DISTRESS. PT IS BR. PT HS NO C/O PAIN AT THIS TIME. IV ACCESS ON R UPPER ARM PICC LINE INTACT, PATENT AND FLUSHING WELL. R FEMORAL HD LINE NOTED AND ADORNO CATHETER, CLEAR, YELLOW URINE DRAINING IN PLACE. SAFETY MEASURES MAINTAINED. BD IN LOWEST LOCKED POSITION, HOB ELEVATED, SIDE RAILS UP X2. CALL LIGHT AND TABLE WITHIN REACH. WILL CONTINUE WITH PLAN OF CARE.
[2021-03-22 20:00] VITALS: BP 99/59
--- NOTE | 2021-03-22 22:11 | NUR ---
PT C/O ACHING 9/10 PAIN ON HIS BILATERAL KNEE, PER PT REQUEST MORPHINE 2MG/ML IV Q4H PRN Q4HR ADMINISTERED PER ORDER, WILL CONTINUE TO MONITOR
[2021-03-22] MEDS: HYDROCODONE/APAP 5/325MG TABLET PO PRN (23:52)
[2021-03-23] MEDS: IPRATROPIUM NEB FS 0.5 MG/2.5 ML AMPUL.NEB NEB SCH ×4 (00:47→20:06)
[2021-03-23] MEDS: HYDROCODONE/APAP 5/325MG TABLET PO PRN ×4 (00:59→20:49)
--- NOTE | 2021-03-23 00:59 | NUR ---
PT C/O ACHING GENERALIZED PAIN 02/22 PAIN , PER PT REQUEST NORCO 5-325MG 1 TAB PO Q6HR PRN ADMINISTERED PER ORDER, WILL CONTINUE TO MONITOR
[2021-03-23] MEDS: MORPHINE SULFATE INJ 2 MG/ML DISP.SYRIN IV PRN (05:47)
--- NOTE | 2021-03-23 05:47 | NUR ---
PT C/O ACHING 9/10 PAIN ON HIS BILATERAL KNEE, PER PT REQUEST MORPHINE 2MG/ML IV Q4H PRN Q4HR ADMINISTERED PER ORDER, WILL CONTINUE TO MONITOR
--- NOTE | 2021-03-23 06:30 | NUR ---
RN CLOSING NOTE PT IS AWAKE IN BED, STABLE ALL SHIFT. WILL ENDORSE TO DAY AM NURSE
[2021-03-23 06:56] LABS: BASOPHILS # (AUTO) 0.1 K/uL (0.0-0.2); BASOPHILS % (AUTO) 0.3 % (0.0-2.0); EOSINOPHILS % (AUTO) 0.3 % (0.0-6.0); HEMATOCRIT 23 % (39-51); HEMOGLOBIN 7.3 g/dL (13.5-17.5); LYMPHOCYTES # (AUTO) 0.8 K/uL (0.8-4.8); LYMPHOCYTES % (AUTO) 3.5 % (20.0-44.0); MEAN CORPUSCULAR HGB CONC 31 g/dl (31.0-36.0); MEAN CORPUSCULAR VOLUME 86 fL (80-96); MONOCYTES # (AUTO) 1.3 K/uL (0.1-1.30); MONOCYTES % (AUTO) 5.8 % (2.0-12.0); NEUTROPHILS # (AUTO) 20.9 K/uL (1.8-8.9); NEUTROPHILS % (AUTO) 90.1 % (43.0-81.0); PLATELET COUNT (AUTO) 179 K/uL (150-450); RED BLOOD CELL COUNT(AUTO) 2.71 MIL/uL (4.5-6.0); WHITE BLOOD COUNT (AUTO) 23.2 K/uL (4.3-11.0)
[2021-03-23 07:26] LABS: CALCIUM, SERUM 8.5 mg/dL (8.5-10.1); CREATININE 2.9 mg/dL (0.6-1.3); POTASSIUM 5.2 mmol/L (3.5-5.1)
--- NOTE | 2021-03-23 07:34 | NUR ---
MS RN OPENING NOTES RECEIVED PT AWAKE IN BED IN NO ACUTE SIGNS FO DISTRESS. HOB ELEVATED. A/0 X4. ABLE TO MAKE NEEDS KNOWN, DENIES PAIN OR ANY DISCOMFORTS AT THIS TIME. ON 02 VIA N/C AT 4LPM, TOLERATING WELL WITH NO SOB NOTED. LAURA PICC LINE INTACT, PATENT AND FLUSHES WELL. ADORNO IN PLACE WITH CLEAR YELLOW URINE OUTPUT NOTED VIA GRAVITY. SAFETY MEASURES IN PLACED: CALL LIGHT WITHIN REACH. BED ON LOWEST AND LOCKED POSITION WITH SIDE RAILS UP X2. WILL CONTINUE TO MONITOR PT ACCORDINGLY.
[2021-03-23] MEDS: ACETYLCYSTEINE 10% SOLN 400 MG/4 ML VIAL NEB SCH ×3 (07:54→23:45)
[2021-03-23 08:00] VITALS: BP 133/84
[2021-03-23] MEDS: risperiDONE 0.25 MG TABLET PO SCH ×2 (08:24→16:15)
[2021-03-23] MEDS: PANTOPRAZOLE 40 MG TABLET.DR PO SCH (08:24)
[2021-03-23] MEDS: NEPRO VAN 237 ML CAN PO SCH ×2 (08:24→17:19)
[2021-03-23] MEDS: DOCUSATE SODIUM 100 MG CAPSULE PO SCH ×2 (08:24→16:17)
[2021-03-23] MEDS: GABAPENTIN 100 MG CAPSULE PO SCH (08:24)
[2021-03-23] MEDS: APIXABAN 2.5 MG TABLET PO SCH ×2 (08:25→16:15)
[2021-03-23] MEDS: CLOTRIMAZOLE 1% 15 GM TUBE TP SCH ×2 (08:27→16:18)
[2021-03-23 09:07] LABS: COMPLEMENT C3, SERUM 98 mg/dL (82-167); COMPLEMENT C4, SERUM 15 mg/dL (12-38)
--- NOTE | 2021-03-23 09:38 | NUR ---
RN NOTES PATIENT C/O OF GENERALIZED BODY PAIN, PRN NORCO 5/325 PO GIVEN AT 0937. WILL CONTINUE TO MONITOR AND REASSESS PT.
[2021-03-23] MEDS: CEFAZOLIN 1 GM in IV D5W 50 ML IV SCH ×2 (10:35→22:35)
[2021-03-23] MEDS ORDERED: BARIUM SULFATE SUSP 450 ML BOTTLE PO ONE (14:27)
--- NOTE | 2021-03-23 15:49 | NUR ---
RN NOTES PT PICKED-UP FOR CT OF CHEST, ABDOMEN AND PELVIS WITH ORAL CONTRAST BY HYDRAULIC AUTO JACK MECHANIC VICKEY.
[2021-03-23 16:00] VITALS: BP 108/67
--- NOTE | 2021-03-23 16:21 | NUR ---
RN NOTES PATIENT C/O OF GENERALIZED BODY PAIN AFTER RETURNING FROM CT CHEST, ABDOMEN AND PELVIS. PRN NORCO 5/325 PO GIVEN AT 1620. WILL CONTINUE TO MONITOR AND REASSESS PT.
--- NOTE | 2021-03-23 17:10 | NUR ---
RN NOTES PATIENT HEMODIALYSIS JUST STARTED BY HD RN DECEMBER VIA RIGHT FEMORAL HD CATHETER.
--- NOTE | 2021-03-23 18:40 | NUR ---
MS RN CLOSING NOTES PT IN BED AWAKE, A/0 X4. ABLE TO MAKE NEEDS KNOWN. PT ON ONGOING HEMODIALYSIS VIA RIGHT FEMORAL HD CATHETER. ON 02 VIA N/C AT 4LPM, TOLERATING WELL WITH NO SOB NOTED DURING SHIFT. LAURA PICC LINE INTACT, PATENT AND FLUSHES WELL. ADORNO IN PLACE WITH CLEAR YELLOW URINE OUTPUT NOTED, ADORNO CARE DONE. PT TURNED AND REPOSITIONED Q 2HRS AND PRN. ALL NEEDS AND CARE ATTENDED WELL. SAFETY MEASURES IN PLACE: CALL LIGHT WITHIN REACH. BED ON LOWEST AND LOCKED POSITION WITH SIDE RAILS UP X2. WILL ENDORSE JAMIL TO LANE MARKER INSTALLER NURSE.
--- NOTE | 2021-03-23 19:45 | NUR ---
MS RN OPENING NOTES RECEIVED PT IN BED, RECEIVING HEMODIALYSIS. PT IS A/Ox3-4. PT IS ON OXYGEN 4L/MIN VIA NASAL CANNULA AND TOLERATING WELL. NO SOB NOTED. NO S/SX OF RESPIRATORY DISTRESS NOTED. IV ACCESS IN LAURA PICC LINE, PATENT, INTACT, AND FLUSHING WELL. R FEMORAL HEMODIALYSIS CATHETER. ADORNO CATHETER IS DRAINING CLEAR, YELLOW URINE. SAFETY MEASURES IN PLACE: BED IN LOWEST, LOCKED POSITION, BRAKES ON, SIDERAILS UPx2. TABLE AND CALL LIGHT WITHIN REACH. WILL CONTINUE TO MONITOR.
[2021-03-23 20:00] VITALS: BP_SYST 87; BP_SYST 97; BP_DIAS 55
--- NOTE | 2021-03-23 20:25 | NUR ---
SPOKE TO DR. SALGADO. PT REQUESTED PAIN MEDICATION BUT CANNOT GIVE DUE TO LOW BP OF 87/55. PT HAD HEMODIALYSIS THIS EVENING. DOCTOR NAOMI ORDERED NORCO 5/325 Q6HRS PRN. NO BOLUS ORDERED BUT WILL CONTINUE TO MONITOR BLOOD PRESSURE.
--- NOTE | 2021-03-23 20:49 | NUR ---
PT STATED PAIN AT 03/25. ADMINISTERED NORCO PER MD ORDER.
[2021-03-23 22:00] VITALS: BP 97/55
--- NOTE | 2021-03-23 22:10 | NUR ---
SPOKE TO DR. SALGADO. PT REQUESTED REMOVAL OF ADORNO CATHETER. DR. SALGADO APPROVED. REMOVED 10 CC'S OF WATER FROM [facility]. ADORNO CATHETER TIP INTACT.
--- NOTE | 2021-03-24 00:07 | NUR ---
PT PICKED AT R FEMORAL HD CATHETER AND REMOVED DRESSING. CLEANED SITE WITH NORMAL SALINE, PATTED DRY, AND PLACED NEW DRESSING ON CATHETER.
[2021-03-24] MEDS: IPRATROPIUM NEB FS 0.5 MG/2.5 ML AMPUL.NEB NEB SCH ×4 (01:32→20:13)
[2021-03-24] MEDS: HYDROCODONE/APAP 5/325MG TABLET PO PRN ×2 (04:35→23:50)
--- NOTE | 2021-03-24 04:41 | NUR ---
ADMINISTERED NORCO, PER MD ORDER. PT STATED PAIN WAS 9/10.
--- NOTE | 2021-03-24 06:33 | NUR ---
MS RN CLOSING NOTES PT LYING IN BED WITH EYES OPEN. PT IS A/Ox3-4. PT IS ON OXYGEN 4L/MIN VIA NASAL CANNULA AND TOLERATING WELL. NO SOB NOTED. NO S/SX OF RESPIRATORY DISTRESS NOTED. IV ACCESS IN LAURA PICC LINE, PATENT, INTACT, AND FLUSHING WELL. R FEMORAL HEMODIALYSIS CATHETER. ADMINISTERED PAIN MEDICATION NEEDED. ALL NEEDS MET. PT KEPT CLEAN AND DRY. SAFETY MEASURES IN PLACE: BED IN LOWEST, LOCKED POSITION, BRAKES ON, SIDERAILS UPx2. TABLE AND CALL LIGHT WITHIN REACH. WILL ENDORSE TO ONCOMING SHIFT.
--- NOTE | 2021-03-24 07:27 | NUR ---
MS RN OPENING NOTES PATIENT RECEIVED IN BED AWAKE, A/O X4. ABLE TO MAKE NEEDS KNOWN, DENIES PAIN OR ANY DISCOMFORTS AT THIS TIME. HOB ELEVATED. ON 02 VIA N/C AT 4LPM, TOLERATING WELL WITH NO SOB NOTED. LAURA PICC LINE INTACT, PATENT AND FLUSHES WELL. RIGHT FEMORAL HD CATH IN PLACE WITH DRESSING /C/D/I. SAFETY MEASURES IN PLACE: CALL LIGHT WITHIN REACH. BED ON LOWEST AND LOCKED POSITION WITH SIDE RAILS UP X2. WILL CONTINUE TO MONITOR PT ACCORDINGLY.
[2021-03-24 07:32] LABS: CREATININE 2.2 mg/dL (0.6-1.3); POTASSIUM 4.6 mmol/L (3.5-5.1)
[2021-03-24 07:33] LABS: MAGNESIUM 2.5 mg/dL (1.8-2.4); PHOSPHORUS 4.2 mg/dL (2.5-4.9)
[2021-03-24 07:53] LABS: BASOPHILS # (AUTO) 0.1 K/uL (0.0-0.2); BASOPHILS % (AUTO) 0.3 % (0.0-2.0); EOSINOPHILS % (AUTO) 0.6 % (0.0-6.0); HEMATOCRIT 23 % (39-51); HEMOGLOBIN 7.1 g/dL (13.5-17.5); LYMPHOCYTES # (AUTO) 0.6 K/uL (0.8-4.8); LYMPHOCYTES % (AUTO) 2.6 % (20.0-44.0); MEAN CORPUSCULAR HGB CONC 31 g/dl (31.0-36.0); MEAN CORPUSCULAR VOLUME 87 fL (80-96); MONOCYTES # (AUTO) 1.3 K/uL (0.1-1.30); NEUTROPHILS # (AUTO) 19.8 K/uL (1.8-8.9); NEUTROPHILS % (AUTO) 90.5 % (43.0-81.0); PLATELET COUNT (AUTO) 148 K/uL (150-450); RED BLOOD CELL COUNT(AUTO) 2.62 MIL/uL (4.5-6.0); WHITE BLOOD COUNT (AUTO) 21.9 K/uL (4.3-11.0)
[2021-03-24 08:00] VITALS: BP 87/58
[2021-03-24] MEDS: PANTOPRAZOLE 40 MG TABLET.DR PO SCH (08:16)
[2021-03-24] MEDS: risperiDONE 0.25 MG TABLET PO SCH ×2 (08:16→16:12)
[2021-03-24] MEDS: GABAPENTIN 100 MG CAPSULE PO SCH (08:16)
[2021-03-24] MEDS: CLOTRIMAZOLE 1% 15 GM TUBE TP SCH ×2 (08:17→16:14)
[2021-03-24] MEDS: NEPRO VAN 237 ML CAN PO SCH ×2 (08:17→17:40)
[2021-03-24] MEDS: APIXABAN 2.5 MG TABLET PO SCH ×2 (08:17→16:12)
[2021-03-24] MEDS: DOCUSATE SODIUM 100 MG CAPSULE PO SCH ×2 (08:19→16:14)
[2021-03-24] MEDS: ACETYLCYSTEINE 10% SOLN 400 MG/4 ML VIAL NEB SCH ×2 (08:22→14:50)
[2021-03-24] MEDS: CEFAZOLIN 1 GM in IV D5W 50 ML IV SCH ×2 (11:09→22:10)
--- NOTE | 2021-03-24 11:50 | NUR ---
RN NOTES BLOOD DRAWN FROM LAURA PICC LINE FOR BLOOD CULTURE.
[2021-03-24 16:00] VITALS: BP 97/62
--- NOTE | 2021-03-24 19:27 | NUR ---
MS RN CLOSING NOTES PT IN BED WATCHING TV AT THIS TIME. A/0 X4. ABLE TO MAKE NEEDS KNOWN. ON 02 VIA N/C AT 3LPM, TOLERATING WELL WITH NO SOB NOTED DURING SHIFT. LAURA PICC LINE INTACT, PATENT AND FLUSHES WELL. RIGHT FEMORAL HD CATHETER IN PLACE WITH NO ACTIVE BLEEDING NOTED, DRESSING C/D/I. ADORNO IN PLACE WITH CLEAR YELLOW URINE OUTPUT NOTED, ADORNO CARE DONE. PT TURNED AND REPOSITIONED Q 2HRS AND PRN. ALL NEEDS AND CARE ATTENDED WELL. SAFETY MEASURES IN PLACE: CALL LIGHT WITHIN REACH. BED ON LOWEST AND LOCKED POSITION WITH SIDE RAILS UP X2. ENDORSED JAMIL TO NIGHT RN DELIA.
--- NOTE | 2021-03-24 19:45 | NUR ---
MS RN OPENING NOTES PT LYING IN BED WITH EYES OPEN. PT IS A/Ox3-4. PT IS ON OXYGEN 4L/MIN VIA NASAL CANNULA AND TOLERATING WELL. NO SOB NOTED. NO S/SX OF RESPIRATORY DISTRESS NOTED. IV ACCESS IN LAURA PICC LINE, PATENT, INTACT, AND FLUSHING WELL. R FEMORAL HEMODIALYSIS CATHETER. SAFETY MEASURES IN PLACE: BED IN LOWEST, LOCKED POSITION, BRAKES ON, SIDERAILS UPx2. TABLE AND CALL LIGHT WITHIN REACH. WILL CONTINUE TO MONITOR.
[2021-03-24 20:00] VITALS: BP 95/55
--- NOTE | 2021-03-24 23:50 | NUR ---
ADMINISTERED NORCO FOR PAIN, PER MD ORDER. WILL CONTINUE TO MONITOR.
[2021-03-25] MEDS: ACETYLCYSTEINE 10% SOLN 400 MG/4 ML VIAL NEB SCH ×4 (00:24→23:26)
[2021-03-25] MEDS: IPRATROPIUM NEB FS 0.5 MG/2.5 ML AMPUL.NEB NEB SCH ×4 (00:31→19:50)
--- NOTE | 2021-03-25 06:45 | NUR ---
MS RN CLOSING NOTES PT LYING IN BED WITH EYES OPEN. PT IS A/Ox3-4. PT IS ON OXYGEN 4L/MIN VIA NASAL CANNULA AND TOLERATING WELL. NO SOB NOTED. NO S/SX OF RESPIRATORY DISTRESS NOTED. IV ACCESS IN LAURA PICC LINE, PATENT, INTACT, AND FLUSHING WELL. IV ACCESS ALSO ON R FEMORAL HEMODIALYSIS CATHETER. PT KEPT CLEAN AND DRY. ALL NEEDS MET. ADMINISTERED PAIN MEDICATION NEEDED. SAFETY MEASURES IN PLACE: BED IN LOWEST, LOCKED POSITION, BRAKES ON, SIDERAILS UPx2. TABLE AND CALL LIGHT WITHIN REACH. WILL ENDORSE TO ONCOMING SHIFT.
[2021-03-25 07:03] LABS: BASOPHILS # (AUTO) 0.1 K/uL (0.0-0.2); BASOPHILS % (AUTO) 0.5 % (0.0-2.0); EOSINOPHILS % (AUTO) 0.6 % (0.0-6.0); HEMATOCRIT 23 % (39-51); HEMOGLOBIN 7.3 g/dL (13.5-17.5); LYMPHOCYTES # (AUTO) 0.7 K/uL (0.8-4.8); LYMPHOCYTES % (AUTO) 3.8 % (20.0-44.0); MEAN CORPUSCULAR HGB CONC 32 g/dl (31.0-36.0); MEAN CORPUSCULAR VOLUME 88 fL (80-96); MONOCYTES # (AUTO) 1.4 K/uL (0.1-1.30); NEUTROPHILS # (AUTO) 17.3 K/uL (1.8-8.9); NEUTROPHILS % (AUTO) 88.1 % (43.0-81.0); PLATELET COUNT (AUTO) 183 K/uL (150-450); RED BLOOD CELL COUNT(AUTO) 2.65 MIL/uL (4.5-6.0); WHITE BLOOD COUNT (AUTO) 19.6 K/uL (4.3-11.0)
--- NOTE | 2021-03-25 07:10 | NUR ---
MS RN OPENING NOTE RECEIVED PATIENT ON BED ASLEEP BUT EASILY AROUSABLE. PATIENT IS A/O X 3-4. PT IS ON OXYGEN 4L/MIN VIA NASAL CANNULA AND TOLERATING WELL WITH NO SIGNS OF RESPIRATORY DISTRESS. WITH LEFT CHEST WALL PACEMAKER. WITH RIGHT UPPER ARM PICC LINE ON SALINE LOCK, PATIENT AND INTACT. WITH RIGHT FEMORAL IV ACCESS FOR HEMODIALYSIS, WITH DRESSING DRY AND INTACT. SAFETY MEASURES IN PLACE WITH BED IN LOWEST AND LOCKED POSITION, SIDERAILS UPx2. TABLE AND CALL LIGHT WITHIN REACH. AT ALL TIMES. WILL CONTINUE TO MONITOR PATIENT.
[2021-03-25 07:21] LABS: CALCIUM, SERUM 8.1 mg/dL (8.5-10.1); CREATININE 2.6 mg/dL (0.6-1.3); MAGNESIUM 2.7 mg/dL (1.8-2.4); PHOSPHORUS 4.9 mg/dL (2.5-4.9); POTASSIUM 5.1 mmol/L (3.5-5.1)
[2021-03-25 08:00] VITALS: BP 95/55
[2021-03-25] MEDS: PANTOPRAZOLE 40 MG TABLET.DR PO SCH (08:37)
[2021-03-25] MEDS: NEPRO VAN 237 ML CAN PO SCH ×2 (08:37→18:09)
[2021-03-25] MEDS: GABAPENTIN 100 MG CAPSULE PO SCH (09:28)
[2021-03-25] MEDS: DOCUSATE SODIUM 100 MG CAPSULE PO SCH ×2 (09:28→18:08)
[2021-03-25] MEDS: risperiDONE 0.25 MG TABLET PO SCH ×2 (09:28→18:09)
[2021-03-25] MEDS: CLOTRIMAZOLE 1% 15 GM TUBE TP SCH ×2 (09:33→18:09)
--- NOTE | 2021-03-25 09:45 | NUR ---
MS RN NOTE ELIQUIS NOT GIVEN YET. PATIENT WITH HG OF 7.3. DR. MORENO NOTIFIED. AWAITING ORDER. WILL CONTINUE TO MONITOR PATIENT.
[2021-03-25] MEDS: APIXABAN 2.5 MG TABLET PO SCH ×2 (10:59→18:14)
--- NOTE | 2021-03-25 11:00 | NUR ---
MS RN NOTE ELIQUIS GIVEN PER MD INSTRUCTION. WILL CONTINUE TO MONITOR PATIENT.
[2021-03-25] MEDS: CEFAZOLIN 1 GM in IV D5W 50 ML IV SCH ×2 (11:19→22:19)
--- NOTE | 2021-03-25 19:00 | NUR ---
MS RN CLOSING NOTE PATIENT ON BED ASLEEP BUT EASILY AROUSABLE. PATIENT IS A/O X 3-4. PT IS ON OXYGEN 4L/MIN VIA NASAL CANNULA AND TOLERATING WELL WITH NO SIGNS OF RESPIRATORY DISTRESS. WITH LEFT CHEST WALL PACEMAKER. WITH RIGHT UPPER ARM PICC LINE ON SALINE LOCK, PATIENT AND INTACT. WITH RIGHT FEMORAL IV ACCESS FOR HEMODIALYSIS, WITH DRESSING DRY AND INTACT. SAFETY MEASURES IN PLACE WITH BED IN LOWEST AND LOCKED POSITION, SIDERAILS UPx2. TABLE AND CALL LIGHT WITHIN REACH. AT ALL TIMES. WILL ENDORSE PATIENT FOR CONTINUITY OF CARE.
[2021-03-25 19:57] VITALS: BP 97/59
[2021-03-25 20:00] VITALS: BP 97/59
[2021-03-25 20:01] VITALS: BP 97/59
--- NOTE | 2021-03-25 22:01 | NUR ---
RN NOTES NOTIFIED DR. SALGADO REGARDING POTASSIUM LEVEL 5.1, NO NEW ORDER, BMP 03/26/21
[2021-03-25] MEDS: MORPHINE SULFATE INJ 2 MG/ML DISP.SYRIN IV PRN (22:28)
[2021-03-26] MEDS: IPRATROPIUM NEB FS 0.5 MG/2.5 ML AMPUL.NEB NEB SCH ×4 (01:34→19:39)
--- NOTE | 2021-03-26 06:42 | NUR ---
RN NOTES REMAINED ON 4LPM VIA NC, ALERT/ORIENTED X4, GENERALIZED WEAKNESS, GIVEN MORPHINE X1, VOIDING VIA DIAPER, BUTTOCKS REMAINED INTACT, BLE WOUND, DRESSING DRY AND INTACT, HEELS OFFLOADED, SPUTUM GROWING GUERDA ALBICANS, LEFT LEG WOUND CULTURE GROWING STAPH AUREUS. CONTINUE ANCEF, CONTINUE CURRENT RESPIRATORY TREATMENT, PER DR. READ, NO INVASIVE PULMONARY INTERVENTION DUE TO CHRONIC LEFT LUNG ATELECTASIS AND DOES NOT CHANGE RESPIRATORY FUNCTION, SPO2 STABLE AT 98% AT 4LPM VIA NC.
[2021-03-26] MEDS: ACETYLCYSTEINE 10% SOLN 400 MG/4 ML VIAL NEB SCH ×2 (07:45→13:15)
[2021-03-26 08:00] VITALS: BP 108/54
[2021-03-26 08:00] LABS: CALCIUM, SERUM 8.1 mg/dL (8.5-10.1); CREATININE 2.9 mg/dL (0.6-1.3)
[2021-03-26 08:11] LABS: POTASSIUM 6.3 mmol/L (3.5-5.1)
--- NOTE | 2021-03-26 08:15 | NUR ---
MS RN NOTE PATIENT WITH LATEST POTASSIUM LEVEL OF 6.3. DR. BOND NOTIFIED. AWAITING ORDER AT THIS TIME.
[2021-03-26] MEDS: GABAPENTIN 100 MG CAPSULE PO SCH (09:22)
[2021-03-26] MEDS: risperiDONE 0.25 MG TABLET PO SCH ×2 (09:22→18:01)
[2021-03-26] MEDS: DOCUSATE SODIUM 100 MG CAPSULE PO SCH ×2 (09:22→18:01)
[2021-03-26] MEDS: PANTOPRAZOLE 40 MG TABLET.DR PO SCH (09:22)
[2021-03-26] MEDS: APIXABAN 2.5 MG TABLET PO SCH ×2 (09:24→17:30)
--- NOTE | 2021-03-26 10:30 | NUR ---
MS RN NOTE PATIENT SEEN DY DR. READ WITH NO NEW ORDER AT THIS TIME. WILL CONTINUE TO MONITOR PATIENT.
[2021-03-26] MEDS: NEPRO VAN 237 ML CAN PO SCH ×2 (10:37→17:00)
[2021-03-26] MEDS: CEFAZOLIN 1 GM in IV D5W 50 ML IV SCH ×2 (11:12→23:36)
[2021-03-26] MEDS: CLOTRIMAZOLE 1% 15 GM TUBE TP SCH ×2 (13:19→18:02)
[2021-03-26 15:45] LABS: BASOPHILS % (AUTO) 0.2 % (0.0-2.0); EOSINOPHILS % (AUTO) 0.4 % (0.0-6.0); HEMATOCRIT 26 % (39-51); HEMOGLOBIN 7.9 g/dL (13.5-17.5); LYMPHOCYTES # (AUTO) 0.7 K/uL (0.8-4.8); LYMPHOCYTES % (AUTO) 3.1 % (20.0-44.0); MEAN CORPUSCULAR HGB CONC 31 g/dl (31.0-36.0); MEAN CORPUSCULAR VOLUME 88 fL (80-96); MONOCYTES # (AUTO) 1.5 K/uL (0.1-1.30); MONOCYTES % (AUTO) 6.7 % (2.0-12.0); NEUTROPHILS # (AUTO) 19.5 K/uL (1.8-8.9); NEUTROPHILS % (AUTO) 89.6 % (43.0-81.0); PLATELET COUNT (AUTO) 212 K/uL (150-450); RED BLOOD CELL COUNT(AUTO) 2.92 MIL/uL (4.5-6.0); WHITE BLOOD COUNT (AUTO) 21.7 K/uL (4.3-11.0)
[2021-03-26 16:05] VITALS: BP 105/52
[2021-03-26 16:17] LABS: EOSINOPHILS % (MANUAL) 1 % (0-4); LYMPHOCYTES % (MANUAL) 1 % (16-48); MONOCYTES % (MANUAL) 3 % (0-11.0); NEUTROPHILS % (MANUAL) 95 (42-76)
--- NOTE | 2021-03-26 19:00 | NUR ---
MS RN CLOSING NOTE PATIENT ON BED ASLEEP BUT EASILY AROUSABLE. PATIENT IS A/O X 3-4. PT IS ON OXYGEN 4L/MIN VIA NASAL CANNULA AND TOLERATING WELL WITH NO SIGNS OF RESPIRATORY DISTRESS. WITH LEFT CHEST WALL PACEMAKER. WITH RIGHT UPPER ARM PICC LINE ON SALINE LOCK, PATIENT AND INTACT. WITH RIGHT FEMORAL IV ACCESS FOR HEMODIALYSIS, WITH DRESSING DRY AND INTACT. SAFETY MEASURES IN PLACE WITH BED IN LOWEST AND LOCKED POSITION, SIDERAILS UPx2. TABLE AND CALL LIGHT WITHIN REACH AT ALL TIMES. WILL ENDORSE PATIENT FOR CONTINUITY OF CARE.
--- NOTE | 2021-03-26 19:15 | NUR ---
RN OPENING NOTE PATIENT IN BED, EYES CLOSED. PATIENT IS ABLE TO MAKE NEEDS KNOWN. A/O X 3. PATIENT HAS A LAURA PICC LINE, PATENT AND INTACT AND A R FEMORAL QUINTIN CATH. PATIENT ON 4 L OF OXYGEN SUPPLEMENTATION, TOLERATING WELL, NOT IN ANY APPARENT RESPIRATORY DISTRESS. SAFETY MEASURES IN PLACE: BED LOCKED AND IN LOWEST POSITION, CALL LIGHT WITHIN REACH, SIDE RAILS UP, BED ALARM ON. WILL MONITOR PATIENT CLOSELY.
--- NOTE | 2021-03-26 19:45 | NUR ---
RN NOTE INFORMATION SERVICES MANAGER PRESENT TO DIALYSE PATIENT TONIGHT
[2021-03-26 20:00] VITALS: BP 97/58
--- NOTE | 2021-03-26 21:00 | NUR ---
RN NOTE LIANA CONDUCTOR PULLMAN REPORTS THAT PT'S BP DROPPING, LAST BP 83/55 AND STATES THAT SHE IS ONLY CLEANING AT THIS TIME. CONDUCTOR PULLMAN INFORMED DR. RICE OF THIS. AWAITING ANY ORDERS.
--- NOTE | 2021-03-26 23:45 | NUR ---
RN NOTE DIALYSIS COMPLETED. BRAIDING OPERATOR CLEANED AND NO OUTPUT D/T BP DROPPING.
[2021-03-27] MEDS: IPRATROPIUM NEB FS 0.5 MG/2.5 ML AMPUL.NEB NEB SCH ×4 (00:29→19:55)
[2021-03-27] MEDS: ACETYLCYSTEINE 10% SOLN 400 MG/4 ML VIAL NEB SCH ×4 (00:29→23:35)
[2021-03-27] MEDS: HYDROCODONE/APAP 5/325MG TABLET PO PRN ×3 (02:25→16:35)
--- NOTE | 2021-03-27 02:25 | NUR ---
RN NOTE PATIENT GIVEN NORCO FOR GENERALIZED PAIN 01/22. WILL REASSESS.
--- NOTE | 2021-03-27 06:45 | NUR ---
RN CLOSING NOTE PATIENT IN BED, ASLEEP. EASILY AROUSED. NOT IN ANY APPARENT DISTRESS. PATIENT STILL ON 4 L OF O2 SUPPLEMENTATION, TOLERATING. PATIENT IS ABLE TO MAKE NEEDS KNOWN. IV ACCESS LAURA PICC LINE PATENT AND INTACT, SALINE LOCKED. R FEMORAL HD CATH C/D/I. PATIENT REFUSED DRESSING CHANGE FOR BLE. SAFETY MEASURES IMPLEMENTED, ALL NEEDS MET AND ATTENDED, ALL ORDERS CARRIED OUT. WILL ENDORSE TO DAY SHIFT NURSE FOR JAMIL.
[2021-03-27 06:49] LABS: CALCIUM, SERUM 7.7 mg/dL (8.5-10.1); CREATININE 2.5 mg/dL (0.6-1.3); MAGNESIUM 2.4 mg/dL (1.8-2.4); PHOSPHORUS 5.4 mg/dL (2.5-4.9); POTASSIUM 4.6 mmol/L (3.5-5.1)
--- NOTE | 2021-03-27 07:22 | NUR ---
MS RN OPENING NOTES RECEIVED PT AWAKE IN BED IN NO ACUTE SIGN SOF DISTRESS. HOB ELEVATED. A/O X3-4. ABLE TO MAKE NEEDS KNOWN, DENIES PAIN OR ANY DISCOMFORTS AT THIS TIME. ON 02 VIA N/C AT 4LPM, TOLERATING WELL WITH NO SOB NOTED AT THIS TIME. LAURA PICC LINE INTACT, PATENT AND FLUSHES WELL. RIGHT FEMORAL HD CATH IN PLACE WITH DRESSING /C/D/I. SAFETY MEASURES IN PLACE: CALL LIGHT WITHIN REACH. BED ON LOWEST AND LOCKED POSITION WITH SIDE RAILS UP X2. WILL CONTINUE TO MONITOR PT.
[2021-03-27] MEDS: PANTOPRAZOLE 40 MG TABLET.DR PO SCH (07:45)
[2021-03-27 08:29] VITALS: BP 100/54
[2021-03-27] MEDS: NEPRO VAN 237 ML CAN PO SCH ×2 (08:31→17:31)
[2021-03-27] MEDS: DOCUSATE SODIUM 100 MG CAPSULE PO SCH ×2 (08:32→17:00)
[2021-03-27] MEDS: GABAPENTIN 100 MG CAPSULE PO SCH (08:32)
[2021-03-27] MEDS: risperiDONE 0.25 MG TABLET PO SCH ×2 (08:32→16:34)
[2021-03-27] MEDS: APIXABAN 2.5 MG TABLET PO SCH ×2 (08:34→16:34)
[2021-03-27] MEDS: CLOTRIMAZOLE 1% 15 GM TUBE TP SCH ×2 (08:37→17:31)
[2021-03-27 08:41] LABS: BASOPHILS # (AUTO) 0.1 K/uL (0.0-0.2); BASOPHILS % (AUTO) 0.6 % (0.0-2.0); EOSINOPHILS % (AUTO) 0.5 % (0.0-6.0); HEMATOCRIT 26 % (39-51); LYMPHOCYTES # (AUTO) 0.8 K/uL (0.8-4.8); LYMPHOCYTES % (AUTO) 3.8 % (20.0-44.0); MEAN CORPUSCULAR HGB CONC 31 g/dl (31.0-36.0); MEAN CORPUSCULAR VOLUME 88 fL (80-96); MONOCYTES % (AUTO) 5.2 % (2.0-12.0); NEUTROPHILS # (AUTO) 17.7 K/uL (1.8-8.9); NEUTROPHILS % (AUTO) 89.9 % (43.0-81.0); PLATELET COUNT (AUTO) 199 K/uL (150-450); RED BLOOD CELL COUNT(AUTO) 2.92 MIL/uL (4.5-6.0); WHITE BLOOD COUNT (AUTO) 19.6 K/uL (4.3-11.0)
--- NOTE | 2021-03-27 10:19 | NUR ---
RN NOTES PT C/O PAIN ON HIS BLE, 7/10 SCALE. PRN NORCO 5/325 PO GIVEN AT 1010. WILL CONTINUE TO MONITOR AND REASSESS PT..
[2021-03-27] MEDS: CEFAZOLIN 1 GM in IV D5W 50 ML IV SCH ×2 (11:23→23:02)
[2021-03-27] MEDS: MORPHINE SULFATE INJ 2 MG/ML DISP.SYRIN IV PRN ×2 (13:06→20:25)
--- NOTE | 2021-03-27 13:07 | NUR ---
RN NOTE PT VERBALIZING PAIN 10/10 ON HIS BOTH LEGS. MORPHINE S04 IV PRN 2MG/1ML GIVEN. PLEASE DISREGARD WASTE DOSAGE IN THE OMNICELL. WILL CONTINUE TO MONITOR THROUGHOUT THE SHIFT.
[2021-03-27 16:26] VITALS: BP 92/54
--- NOTE | 2021-03-27 16:38 | NUR ---
RN NOTES PT C/O PAIN ON HIS R AND L BACK, 7/10 SCALE. PRN NORCO 5/325 PO GIVEN AT 1635. WILL CONTINUE TO MONITOR.
--- NOTE | 2021-03-27 18:37 | NUR ---
MS RN CLOSING NOTES PT IN BED AWAKE AND LYING AT MODERATE HIGH BACKREST POSITION. A/0 X4. ABLE TO MAKE NEEDS KNOWN. ON 02 VIA N/C AT 4LPM, TOLERATING WELL WITH NO SOB NOTED DURING SHIFT. LAURA PICC LINE INTACT, PATENT AND FLUSHES WELL. RIGHT FEMORAL HD CATHETER IN PLACE WITH NO ACTIVE BLEEDING NOTED, DRESSING C/D/I. PT TURNED AND REPOSITIONED Q 2HRS AND PRN. ALL NEEDS AND CARE ATTENDED WELL. SAFETY MEASURES IN PLACE: CALL LIGHT WITHIN REACH. BED IN LOWEST AND LOCKED POSITION WITH SIDE RAILS UP X2.WILL ENDORSE JAMIL TO CREDIT COLLECTIONS REP NURSE.
--- NOTE | 2021-03-27 19:49 | NUR ---
MS BECK OPENING RECEIVED PATIENT IN BED, A/OX3. NO S/S OF APPARENT DISTRESS TOLERATING 5LPM OF O2 VIA NC. NO C/O PAIN. PATIENT HAS NO FLUIDS RUNNING AT THIS TIME. FLUSHED PICC WITH SALINE-- INTACT AND PATENT. SAFETY IN PLACE. WILL CONTINUE TO MONITOR.
[2021-03-27 20:00] VITALS: BP 89/54
--- NOTE | 2021-03-27 20:25 | NUR ---
MS RN NOTES PATIENT COMPLAINING OF PAIN IN HIS LOWER ABDOMEN AND LOWER TORSO. 04/24. GIVEN MORPHINE 2MG PRN. WILL REASSESS.
[2021-03-28] MEDS: MORPHINE SULFATE INJ 2 MG/ML DISP.SYRIN IV PRN ×2 (00:28→04:33)
[2021-03-28] MEDS: IPRATROPIUM NEB FS 0.5 MG/2.5 ML AMPUL.NEB NEB SCH ×4 (01:48→20:17)
--- NOTE | 2021-03-28 04:33 | NUR ---
ms rn note patient given morphine 2mg at this time before dressing change.
[2021-03-28 06:07] LABS: BASOPHILS # (AUTO) 0.1 K/uL (0.0-0.2); BASOPHILS % (AUTO) 0.4 % (0.0-2.0); EOSINOPHILS % (AUTO) 0.3 % (0.0-6.0); HEMATOCRIT 24 % (39-51); HEMOGLOBIN 7.3 g/dL (13.5-17.5); LYMPHOCYTES # (AUTO) 0.5 K/uL (0.8-4.8); LYMPHOCYTES % (AUTO) 2.4 % (20.0-44.0); MEAN CORPUSCULAR HGB CONC 31 g/dl (31.0-36.0); MEAN CORPUSCULAR VOLUME 90 fL (80-96); MONOCYTES # (AUTO) 0.9 K/uL (0.1-1.30); MONOCYTES % (AUTO) 4.3 % (2.0-12.0); NEUTROPHILS % (AUTO) 92.6 % (43.0-81.0); PLATELET COUNT (AUTO) 189 K/uL (150-450); RED BLOOD CELL COUNT(AUTO) 2.64 MIL/uL (4.5-6.0); WHITE BLOOD COUNT (AUTO) 21.6 K/uL (4.3-11.0)
--- NOTE | 2021-03-28 06:49 | NUR ---
ms rn closing patient in bed with eyes closed, easy to arouse. a/ox3. patient has no apparent distress, tolerating 5lpm of oxygen via nc. pain managed with medications. no fluids running at this time. all needs attended, all sched meds administered, picture taken. safety in place. will endorse care to morning shift rn for continuation of care
[2021-03-28 07:28] LABS: CALCIUM, SERUM 7.9 mg/dL (8.5-10.1); CREATININE 3.2 mg/dL (0.6-1.3); MAGNESIUM 2.8 mg/dL (1.8-2.4); PHOSPHORUS 7.3 mg/dL (2.5-4.9); POTASSIUM 5.2 mmol/L (3.5-5.1)
--- NOTE | 2021-03-28 07:33 | NUR ---
MS RN OPENING NOTES RECEIVED PT IN BED AWAKE, A/O X3-4. HOB ELEVATED. ABLE TO MAKE NEEDS KNOWN, DENIES PAIN OR ANY DISCOMFORTS AT THIS TIME. ON 02 VIA N/C AT 4LPM, TOLERATING WELL WITH NO SOB NOTED AT THIS TIME. LAURA PICC LINE INTACT, PATENT AND FLUSHES WELL. RIGHT FEMORAL HD CATH IN PLACE WITH DRESSING /C/D/I. SAFETY MEASURES IN PLACE: CALL LIGHT WITHIN REACH. BED ON LOWEST AND LOCKED POSITION WITH SIDE RAILS UP X2. WILL CONTINUE TO MONITOR PT
[2021-03-28] MEDS: ACETYLCYSTEINE 10% SOLN 400 MG/4 ML VIAL NEB SCH ×2 (08:04→14:35)
[2021-03-28] MEDS: DOCUSATE SODIUM 100 MG CAPSULE PO SCH ×2 (08:06→16:39)
[2021-03-28] MEDS: NEPRO VAN 237 ML CAN PO SCH ×3 (08:06→17:26)
[2021-03-28] MEDS: GABAPENTIN 100 MG CAPSULE PO SCH (08:06)
[2021-03-28] MEDS: PANTOPRAZOLE 40 MG TABLET.DR PO SCH (08:07)
[2021-03-28] MEDS: APIXABAN 2.5 MG TABLET PO SCH ×2 (08:09→16:39)
[2021-03-28] MEDS: risperiDONE 0.25 MG TABLET PO SCH ×2 (08:09→16:40)
[2021-03-28] MEDS: CLOTRIMAZOLE 1% 15 GM TUBE TP SCH ×2 (08:10→17:26)
[2021-03-28 09:35] VITALS: BP 168/91
--- NOTE | 2021-03-28 10:04 | NUR ---
RN NOTES RECEIVED CALL FROM GENERAL PRODUCTION MANAGER CIPRIANO LYNN THAT PT HAS CRITICAL HIGH PROCALCITONIN 3.06. DR BOND MADE AWARE AND ACKNOWLEDGED, NO NEW ORDER MADE AT THIS TIME.
[2021-03-28 14:55] LABS: ABG BASE EXCESS -3.7 mmol/L; ABG OXYGEN SATURATION 73.8 % (92.0-98.5); ABG PO2 47.5 mmHg (75.0-100.0); AaDO2 222.4 mmHg; COHb 1.4 % (0.5-1.5); MetHb 0.3 % (0.0-1.5); O2Hb 72.5 % (94.0-97.0); SITE, ABG Right Radial; VENT MODE, BG Simple Mask
--- NOTE | 2021-03-28 15:20 | NUR ---
RT Pt observed to be lethargic and hypoxic, ABG was done and critical results reported to Dr. Garibay. Pt was started on BiPAP with noted settings per Dr. Garibay orders. BiPAP is plugged into red outlet. Addendum: 03/28/21 at 1530 by DEV PEPE RT Amended: Links added.
--- NOTE | 2021-03-28 15:28 | NUR ---
RN NOTES STAT ABG'S DONE, RESULTS REPORTED TO DR READ WITH ORDER TO PLACE PT ON BIPAP 25/5, R 20 AND FI02 100%. RT 'S AT BEDSIDE AND PLACED BIPAP. WILL CONTINUE TO MONITOR.
[2021-03-28] MEDS: ALBUMIN 25% 25 GM in PREMIX 1 EA IV PRN (15:37)
--- NOTE | 2021-03-28 15:38 | NUR ---
RN NOTES STRATEGIC COMMUNICATIONS SPECIALIST ZHEN ABOUT TO START HEMODIALYSIS ON PT BUT PT HAD LOW BP 88/52, REPORTED TO DR KYLE TO ADMINISTER ALBUMIN 25%/25MG/100ML BEFORE HD.
[2021-03-28 16:28] VITALS: BP 88/52
--- NOTE | 2021-03-28 16:40 | NUR ---
RN NOTES ALL SCHEDULED ORAL AFTERNOON MEDS NOT GIVEN, PT IS TOO DROWSY AND ON BIBAP. WILL CONTINUE TO MONITOR
[2021-03-28 17:18] LABS: ABG BASE EXCESS 2.8 mmol/L; ABG OXYGEN SATURATION 92.5 % (92.0-98.5); ABG PCO2 43.9 mmHg (35.0-45.0); ABG PH 7.417 (7.350-7.450); ABG PO2 62.9 mmHg (75.0-100.0); AaDO2 606.2 mmHg; COHb 1.5 % (0.5-1.5); MetHb 0.4 % (0.0-1.5); O2Hb 90.7 % (94.0-97.0); SITE, ABG Right Radial; VENT MODE, BG BIPAP 15/5
--- NOTE | 2021-03-28 17:25 | NUR ---
RN NOTES ABG DONE AGAIN BY RESPIRATORY THERAPIST MARIELA. NOTED WITH IMPROVEMENTS IN RESULTS AND DR READ MADE AWARE.
--- NOTE | 2021-03-28 17:57 | NUR ---
RN NOTES HEMODIALYSIS JUST FINISHED WITH '0' OUTPUT NOTED.
--- NOTE | 2021-03-28 19:01 | NUR ---
MS RN CLOSING NOTES PT IN BED ASLEEP AT THIS TIME, AWAKENS TO TACTILE AND VERBAL STIMULI. HOB ELEVATED. DNR/DNI STATUS MAINTAINED. PT ON BIPAP HUMAIRA SETTINGS OF 20/5, FI02 100@ AND R 20. A/0 X4. LAURA PICC LINE INTACT, PATENT AND FLUSHES WELL. RIGHT FEMORAL HD CATHETER IN PLACE WITH NO ACTIVE BLEEDING NOTED, DRESSING C/D/I. PT TURNED AND REPOSITIONED Q 2HRS AND PRN. ALL NEEDS AND CARE ATTENDED WELL. SAFETY MEASURES IN PLACE: CALL LIGHT WITHIN REACH. BED IN LOWEST AND LOCKED POSITION WITH SIDE RAILS UP X2.WILL ENDORSE JAMIL TO CLINICAL DATA MANAGEMENT DIRECTOR NURSE.
--- NOTE | 2021-03-28 19:45 | NUR ---
MS RN OPENING NOTES PT RESTING IN BED, OPENS EYES TO VERBAL STIMULI, ALERT/ORIENTED X 3. PT ON BIPAP MACHINE SETTINGS OF 20/5, FI02 100% AND R 20, SPO2 READING 92%, NO S/S OF DISTRESS NOTED. LAURA PICC LINE INTACT AND FLUSHING WELL. RIGHT FEMORAL HD CATHETER IN PLACE WITH NO ACTIVE BLEEDING NOTED, DRESSING C/D/I. SAFETY MEASURES IN PLACE: HOB ELEVATED, CALL LIGHT WITHIN REACH, BED LOCKED IN LOW POSITION, SIDE RAILS UP X2. WILL CONTINUE TO MONITOR PATIENT
[2021-03-28 20:30] VITALS: BP 82/38
--- NOTE | 2021-03-28 23:00 | NUR ---
MS RN NOTE PATIENT ON BIPAP MACHINE, SPO2 READING 85%, CALLED RT AND PATIENT PLACED ON 100% OXYGEN VIA BIPAP MACHINE, INITIALLY SPO2 WENT UP TO 88% BUT THEN DECREASED DOWN TO 82-86%. PATIENT IS DNR/DNI, ASKED PATIENT IF HE WANTED TO BE INTUBATED IF HIS OXYGEN KEPT DROPPING AND HE SAID NO. DPOA CALLED REGARDING PATIENT'S CONDITION AND VOICEMAIL LEFT. CONTACTED DR. SALGADO REGARDING PATIENT'S CONDITION, NO NEW ORDERS, STATED TO KEEP PATIENT ON BIPAP. WILL CONTINUE TO MONITOR PATIENT
[2021-03-29] MEDS: ACETYLCYSTEINE 10% SOLN 400 MG/4 ML VIAL NEB SCH ×3 (02:03→12:54)
[2021-03-29] MEDS: IPRATROPIUM NEB FS 0.5 MG/2.5 ML AMPUL.NEB NEB SCH ×4 (02:03→19:30)
[2021-03-29 06:47] LABS: CALCIUM, SERUM 7.8 mg/dL (8.5-10.1); CREATININE 3.3 mg/dL (0.6-1.3); MAGNESIUM 2.4 mg/dL (1.8-2.4); PHOSPHORUS 6.3 mg/dL (2.5-4.9); POTASSIUM 4.9 mmol/L (3.5-5.1)
--- NOTE | 2021-03-29 07:00 | NUR ---
MS RN NOTE PATIENT AWAKE IN BED, ALERT/ORIENTED X 3, PT ABLE TO MAKE NEEDS KNOWN. PT ON BIPAP MACHINE ON FIO2: 100%, PATIENT'S SPO2 = 92%, PATIENT HAS REMAINED STABLE ON THIS SETTING SINCE MIDNIGHT, AT TIMES PATIENT REMOVED MASK AND I EXPLAINED THE RISKS AND BENEFITS, PT VERBALIZED UNDERSTANDING. PER CHARGE NURSE OLGA CHAPIN, CALLED BACK AND STATED SHE WILL TRY TO VISIT PATIENT TODAY, POWER OF NUT GRADER ALSO CALLED BACK AND I EXPLAINED THE SITUATION OF PATIENT'S OXYGEN DECREASING EARLIER IN THE SHIFT BUT THAT THE PATIENT'S OXYGEN HAS REMAINED STABLE FOR THE REST OF THE SHIFT. PT NEEDS ATTENDED TO AND PATIENT TURNED Q2H. SAFETY MEASURES IN PLACE: CALL LIGHT WITHIN REACH, BED LOCKED IN LOW POSITION, BED ALARM ON, SIDE RAILS UP X 3. WILL ENDORSE TO DAY SHIFT NURSE FOR CONTINUITY OF CARE
[2021-03-29] MEDS: PANTOPRAZOLE 40 MG TABLET.DR PO SCH (07:30)
--- NOTE | 2021-03-29 07:46 | NUR ---
RN OPENING NOTE PT AWAKE IN BED RESTING. ON BIPAP MACHINE WITH FI02 100%. SOB PRESENT, NO RESPIRATORY DISTRESS NOTED. NO RV SERVICE TECHNICIAN PRESENT. EDEMA PRESENT ON BLE AND ASCITES PRESENT. ON BEDREST AND INCONTINENT. SKIN PROBLEMS PRESENT, PICTURES IN CHART, WOUND CARE ORDERED. PICC LINE PRESENT ON LAURA AND FLUSHES WELL. R FEMORAL HD CATH PRESENT. LABS AND ORDERS REVIEWED. SAFETY MEASURES IN PLACE. SIDE RAILS RAISED. BED LOWERED. CALL LIGHT WITHIN REACH. WILL CONTINUE TO MONITOR.
[2021-03-29 08:00] VITALS: BP 139/87
[2021-03-29 08:42] LABS: BASOPHILS # (AUTO) 0.1 K/uL (0.0-0.2); BASOPHILS % (AUTO) 0.3 % (0.0-2.0); EOSINOPHILS % (AUTO) 0.1 % (0.0-6.0); LYMPHOCYTES # (AUTO) 0.4 K/uL (0.8-4.8); LYMPHOCYTES % (AUTO) 1.8 % (20.0-44.0); MEAN CORPUSCULAR HGB CONC 31 g/dl (31.0-36.0); MEAN CORPUSCULAR VOLUME 90 fL (80-96); MONOCYTES # (AUTO) 0.9 K/uL (0.1-1.30); MONOCYTES % (AUTO) 3.5 % (2.0-12.0); NEUTROPHILS # (AUTO) 23.1 K/uL (1.8-8.9); NEUTROPHILS % (AUTO) 94.3 % (43.0-81.0); PLATELET COUNT (AUTO) 162 K/uL (150-450); RED BLOOD CELL COUNT(AUTO) 2.25 MIL/uL (4.5-6.0); WHITE BLOOD COUNT (AUTO) 24.5 K/uL (4.3-11.0)
--- NOTE | 2021-03-29 08:42 | NUR ---
RN NOTE PT NOTED TO TAKE OFF BIPAP PERIODICALLY. EDUCATION GIVEN TO PT OF IMPORTANCE OF KEEPING BIPAP ON. CN AWARE. WILL CONTINUE TO MONITOR.
[2021-03-29] MEDS: risperiDONE 0.25 MG TABLET PO SCH ×2 (08:45→16:08)
[2021-03-29] MEDS: DOCUSATE SODIUM 100 MG CAPSULE PO SCH ×2 (08:45→16:08)
[2021-03-29] MEDS: GABAPENTIN 100 MG CAPSULE PO SCH (08:46)
[2021-03-29] MEDS: APIXABAN 2.5 MG TABLET PO SCH ×2 (08:52→16:15)
[2021-03-29] MEDS: NEPRO VAN 237 ML CAN PO SCH ×2 (08:53→16:09)
[2021-03-29] MEDS: CLOTRIMAZOLE 1% 15 GM TUBE TP SCH ×2 (08:55→16:08)
[2021-03-29 08:56] LABS: HEMATOCRIT 20 % (39-51); HEMOGLOBIN 6.3 g/dL (13.5-17.5)
--- NOTE | 2021-03-29 09:00 | NUR ---
RN NOTE PT PLACED ON 8L NC O2. RT AND MD AWARE. WILL CONTINUE TO MONITOR.
[2021-03-29 10:18] LABS: EOSINOPHILS % (MANUAL) 1 % (0-4); MONOCYTES % (MANUAL) 1 % (0-11.0); NEUTROPHILS % (MANUAL) 98 (42-76)
[2021-03-29 10:22] LABS: LYMPHOCYTES % (MANUAL) 0 % (16-48)
[2021-03-29] MEDS ORDERED: MEROPENEM 500 MG in IV NS 0.9% 50 ML IV SCH (11:00)
[2021-03-29] MEDS: ALBUMIN 25% 25 GM in PREMIX 1 EA IV PRN (15:48)
[2021-03-29 16:00] VITALS: BP 76/52
--- NOTE | 2021-03-29 18:40 | NUR ---
RN CLOSING NOTE PT AWAKE IN BED RESTING. ON 6L NC WITH HUMIDIFIER. SOB PRESENT, NO RESPIRATORY DISTRESS NOTED. NO SAS ANALYST PRESENT. EDEMA PRESENT ON BLE AND ASCITES PRESENT. ON BEDREST AND INCONTINENT. SKIN PROBLEMS PRESENT, PICTURES IN CHART, WOUND CARE ORDERED. PICC LINE PRESENT ON LAURA AND FLUSHES WELL. R FEMORAL HD CATH PRESENT. LABS AND ORDERS REVIEWED. ROUTINE MEDS GIVEN. SAFETY MEASURES IN PLACE. SIDE RAILS RAISED. BED LOWERED. CALL LIGHT WITHIN REACH. REPORT TO BE GIVEN TO NIGHT NURSE FOR JAMIL.
--- NOTE | 2021-03-29 21:30 | NUR ---
RN NOTE PT FOUND UNRESPONSIVE IN BED WITH EYES CLOSED. PT APPEARS PALE WITH SKIN COOL TO TOUCH. NO RESPIRATORY EFFORT NOTED. NO RESPONSE TO VERBAL STIMULI. NO RESPONSE TO SUPRAORBITAL PRESSURE. NO CAROTID PULSE PALPABLE. PUPILS FIXED AND DILATED BILATERALLY. NO HEART SOUNDS NOTED DURING 3 MINUTES OF AUSCULTATION. NO BREATH SOUNDS NOTED AFTER 3 MINUTES OF AUSCULTATION. CHAPIN CHARGE NURSE AND STEVE RN PRESENT. TIME OF CALLED BY CHAPIN CHARGE NURSE AT 2130. INFORMED DR. KO AND DR. JOYA. WILL CONTACT [facility]. WILL REMOVE IV ACCESS AND PERFORM POSTMORTEM CARE.
== END 2021-03-29 19:30 | DRG 720 ==
LOC: ER 04:29 → TRANSITION 07:03 → ICU 16:33 → TELE 03-18 11:15 → MED 03-20 11:57
PROVIDERS: ATTEND Nurse Practitioner Family
PROC: 02HV33Z Insertion of Infusion Device into Superior Vena Cava, Percutaneous Approach (ICD-10-PCS; 2021-03-12)
PROC: B548ZZA Ultrasonography of Superior Vena Cava, Guidance (ICD-10-PCS; 2021-03-12)
PROC: 5A1D70Z Performance of Urinary Filtration, Intermittent, Less than 6 Hours Per Day (ICD-10-PCS; 2021-03-13)
PROC: 06HY33Z Insertion of Infusion Device into Lower Vein, Percutaneous Approach (ICD-10-PCS; principal; 2021-03-15)
PROC: 30233N1 Transfusion of Nonautologous Red Blood Cells into Peripheral Vein, Percutaneous Approach (ICD-10-PCS; 2021-03-17)
DX: A40.0 Sepsis due to streptococcus, group A (principal); J96.01 Acute respiratory failure with hypoxia; N17.0 Acute kidney failure with tubular necrosis; R65.21 Severe sepsis with septic shock; G93.40 Encephalopathy, unspecified; I50.33 Acute on chronic diastolic (congestive) heart failure; E44.1 Mild protein-calorie malnutrition; J91.8 Pleural effusion in other conditions classified elsewhere; J18.9 Pneumonia, unspecified organism; D68.59 Other primary thrombophilia; R53.2 Functional quadriplegia; E87.2 Acidosis; D69.6 Thrombocytopenia, unspecified; I11.0 Hypertensive heart disease with heart failure; E11.9 Type 2 diabetes mellitus without complications; E87.5 Hyperkalemia; Z20.822 Contact with and (suspected) exposure to COVID-19; K40.90 Unilateral inguinal hernia, without obstruction or gangrene, not specified as recurrent; K59.00 Constipation, unspecified; Z66 Do not resuscitate; Z74.01 Bed confinement status; Z95.2 Presence of prosthetic heart valve; Z95.1 Presence of aortocoronary bypass graft; Z95.0 Presence of cardiac pacemaker; Z79.01 Long term (current) use of anticoagulants; J96.21 Acute and chronic respiratory failure with hypoxia; J98.11 Atelectasis; L03.115 Cellulitis of right lower limb; L03.116 Cellulitis of left lower limb; I21.A1 Myocardial infarction type 2; D64.9 Anemia, unspecified; E66.01 Morbid (severe) obesity due to excess calories; G89.4 Chronic pain syndrome; E80.6 Other disorders of bilirubin metabolism; N39.0 Urinary tract infection, site not specified; I87.8 Other specified disorders of veins; D63.8 Anemia in other chronic diseases classified elsewhere; M79.662 Pain in left lower leg; M79.661 Pain in right lower leg; E11.621 Type 2 diabetes mellitus with foot ulcer; L97.519 Non-pressure chronic ulcer of other part of right foot with unspecified severity; I87.312 Chronic venous hypertension (idiopathic) with ulcer of left lower extremity; L97.829 Non-pressure chronic ulcer of other part of left lower leg with unspecified severity; I71.2 Thoracic aortic aneurysm, without rupture; K74.60 Unspecified cirrhosis of liver; R18.8 Other ascites; B19.20 Unspecified viral hepatitis C without hepatic coma; F39 Unspecified mood [affective] disorder; Z68.33 Body mass index [BMI] 33.0-33.9, adult; J44.0 Chronic obstructive pulmonary disease with (acute) lower respiratory infection; N50.89 Other specified disorders of the male genital organs; X58.XXXA Exposure to other specified factors, initial encounter; Y93.9 Activity, unspecified; Y92.89 Other specified places as the place of occurrence of the external cause; J98.19 Other pulmonary collapse; T17.998A Other foreign object in respiratory tract, part unspecified causing other injury, initial encounter; B95.61 Methicillin susceptible Staphylococcus aureus infection as the cause of diseases classified elsewhere; I25.2 Old myocardial infarction; I87.2 Venous insufficiency (chronic) (peripheral)
CPT/HCPCS: 36011; 36415; 36569; 36600; 71045-TC; 71250-TC; 76770-TC; 80048-TC; 80053-TC; 80061-TC; 80076-TC; 80202-TC; 81001; 82550-TC; 82553; 82570-TC; 82595; 82803-TC; 82962-TC; 83605-TC; 83735-TC; 83880; 83970; 84100-TC; 84155; 84155-TC; 84165; 84300-TC; 84443-TC; 84484-TC; 85025-TC; 85610-TC; 85730-TC; 86704; 86706; 86803; 86850-TC; 87040-TC; 87070-TC; 87081-TC; 87086-TC; 87186-TC; 87340; 87522; 87806; 90935-TC; 93307-TC; 93970-TC; 94760-TC; 94762-TC; 94799-TC; 97112-TC; 97530-TC; A4216; A6253; A6403; C1750; C9803; G0378; G0500; J0456; J0610; J0690; J0692; J0696; J1815; J2060; J2185; J2270; J2543; J2930; J3010; J3370; J3490; J7030; J7040; J7042; J7050; J7060; P9016; P9047; U0003